=== PATIENT | female | born 1990 | race Caucasian/White ===

== ENCOUNTER 2018-03-04 16:36 | Emergency (ER) | payer BC, SELFPAY ==
[2018-03-04 16:37] VITALS: BP 146/76; PULSE 99; RESP 16; TEMP 35.8; O2SAT 97; BMI 34.0
--- NOTE | 2018-03-04 16:51 | MRI_ITS ---
STUDY: EXAMINATION - MRV BRAIN WITHOUT CONTRAST REASON FOR EXAM: Female, 28 years old. Posterior headache. . Rule out dural venous thrombosis. TECHNIQUE: 3D upyh-di-sgikof (TOF) imaging was performed in a evelyn MRI scanner. COMPARISON: None. FINDINGS: Irregularity and extrinsic defects are noted within the superior sagittal sinus which probably represent arachnoid granulations rather than thrombus. Normal flow within the superficial cortical veins. Normal flow within the paired internal cerebral veins, vein of Frankie and straight sinus. Normal flow within the bilateral transverse and sigmoid sinuses. Normal flow within the bilateral jugular bulbs. MRI/MRV Head Without Contrast IMPRESSION: No dural venous thrombosis Electronically Signed: Alex Munoz MD at 18:52 EDT , Service support ,
--- NOTE | 2018-03-04 16:51 | MRI_ITS ---
STUDY: MRI BRAIN WITHOUT CONTRAST REASON FOR EXAM: Female, 28 years old. Headache and TECHNIQUE: Standardized multiplanar fat and water weighted pulse sequences were obtained. COMPARISON: None. FINDINGS: Normal size of the ventricles and extra-axial spaces for the patient's age. Normal white matter tracts of the supratentorial brain. There is no evidence for recent intracranial ischemia or other cause of cytotoxic edema on diffusion weighted imaging (DWI). Normal bilateral basal ganglia. Normal thalami. There is no extra-axial fluid accumulation. Normal flow voids within the major intracranial circulation suggesting patency by spin echo criteria. Normal sella turcica, pituitary gland, infundibular stalk, optic chiasm and hypothalamus. Normal tectal plate and pineal gland. Normal midbrain, mike and medulla. Normal cerebellum. Normal basal cisterns. Normal bilateral temporal bones. Normal bilateral internal auditory canals. No demonstrated orbital abnormality, within the constraints of a routine brain study. Normal visualized paranasal sinuses. Normal calvarium and skull base. Normal visualized soft tissue structures. Normal visualized upper cervical spine. MRI/Brain without Contrast IMPRESSION: Normal unenhanced MRI of the brain. Electronically Signed: Alex Munoz MD at 19:05 EDT , Service support ,
--- NOTE | 2018-03-04 16:56 | ED.VISSUMM ---
- ER Visit Summary Date of Service: 03/04/18 Chief Complaint: Posterior headache History of Present Illness: The patient is a 28 F no significant past medical history. Currently is about 5 weeks . Only prior surgery was a . Patient states for 2 weeks she has had a posterior headache that is constant and throbbing. States she has never had a headache like this before. Typically does not get headaches. Gradual in onset. Worse supine. Worse if she looks up at the ceiling. No photophobia. No fever. No neck pain. No sinus congestion. No trauma. On no blood thinners. No family history of hypercoagulable problems or brain aneurysms. Patient denies any neurological symptoms. Nothing particularly relieves the headache other than Tylenol but then quickly returns within an hour. With her last she did not have any issues with headaches. She is Ab0. Physical Examination: Well-appearing young female. Vital signs are stable. Afebrile. H EENT exam unremarkable. Pupils are round reactive light. No sinus tenderness. No nasal drainage. Posterior pharynx normal. TMs normal. No signs of trauma to her face or scalp nontender. Neck nontender no lymphadenopathy. No meningismus. Able to easily touch her chin to chest. Lungs clear to auscultation bilaterally. Heart regular rhythm no murmur. Abdomen soft. Nontender normal bowel sounds no peritoneal signs. Moving all 4 extremities. Neurovascularly intact. Neurologically she is awake and alert. No focal motor or sensory deficits. 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 Bilateral dorsi and plantar flexion 5 out of 5. Fingertip to nose heel to pérez within normal limits. She ambulates without any difficulty. Negative Romberg. NIH score is 0. Test Results: MRI of the brain and MRV as read by the radiologist show a normal plain MRI. The MRV shows arachnoid granulations but normal flow. No dural venous thrombosis per the radiologist. I did review the film. CBC unremarkable white count of 9. Hemoglobin 14. Electrolytes unremarkable normal gap and creatinine. Emergency Department Course and Treatment: Repeat exam patient is doing well at 1921. She will be discharged home. Given that she is she will be instructed use Tylenol for pain. Treatment Plan: Follow-up with her SCAFFOLD WORKER. Disposition: Discharge Impression: Acute posterior headache First trimester This note was generated with [employer] software. It may contain incorrect words, spelling, and punctuation that were not noted in review of the chart prior to signing ED Disposition - Plan for ED Patient: Chief Complaint: Headache Referrals: Bina Mir MD [Primary Care Provider] -
--- NOTE | 2018-03-04 16:59 | ED.DCSUM_ITS ---
- ER Visit Summary Date of Service: 03/04/18 Chief Complaint: Posterior headache History of Present Illness: The patient is a 28 F no significant past medical history. Currently is about 5 weeks . Only prior surgery was a C- section. Patient states for 2 weeks she has had a posterior headache that is constant and throbbing. States she has never had a headache like this before. Typically does not get headaches. Gradual in onset. Worse supine. Worse if she looks up at the ceiling. No photophobia. No fever. No neck pain. No sinus congestion. No trauma. On no blood thinners. No family history of hypercoagulable problems or brain aneurysms. Patient denies any neurological symptoms. Nothing particularly relieves the headache other than Tylenol but then quickly returns within an hour. With her last she did not have any issues with headaches. She is Ab0. Physical Examination: Well-appearing young female. Vital signs are stable. Afebrile. H EENT exam unremarkable. Pupils are round reactive light. No sinus tenderness. No nasal drainage. Posterior pharynx normal. TMs normal. No signs of trauma to her face or scalp nontender. Neck nontender no lymphadenopathy. No meningismus. Able to easily touch her chin to chest. Lungs clear to auscultation bilaterally. Heart regular rhythm no murmur. Abdomen soft. Nontender normal bowel sounds no peritoneal signs. Moving all 4 extremities. Neurovascularly intact. Neurologically she is awake and alert. No focal motor or sensory deficits. Bilateral 5 out of 5 display manager strength. Bilateral dorsi and plantar flexion 5 out of 5. Fingertip to nose heel to pérez within normal limits. She ambulates without any difficulty. Negative Romberg. NIH score is 0. Test Results: MRI of the brain and MRV as read by the radiologist show a normal plain MRI. The MRV shows arachnoid granulations but normal flow. No dural venous thrombosis per the radiologist. I did review the film. CBC unremarkable white count of 9. Hemoglobin 14. Electrolytes unremarkable normal gap and creatinine. Emergency Department Course and Treatment: Repeat exam patient is doing well at 1921. She will be discharged home. Given that she is she will be instructed use Tylenol for pain. Treatment Plan: Follow-up with her EARLY BREASTFEEDING CARE SPECIALIST. Disposition: Discharge Impression: Acute posterior headache First trimester This note was generated with Tastemaker[employer]ation software. It may contain incorrect words, spelling, and punctuation that were not noted in review of the chart prior to signing ED Disposition - Plan for ED Patient: Chief Complaint: Headache Referrals: Bina Mir MD [Primary Care Provider] -
[2018-03-04 17:15] LABS: Absolute Lymphocyte Count 2.17 X10^3/ul (0.83-4.51); Basophil# 0.02 X10^3/uL; Basophil% 0.2 % (0-1); Eosinophil# 0.11 X10^3/uL; Eosinophils% 1.1 % (0-5); Hematocrit 41.8 % (37-47); Hemoglobin 14.2 g/dl (12.0-15.0); Lymphocyte # 2.17 X10^3/ul (4.0); Mean Corpuscular Hgb 30.7 pg (27.0-32.0); Mean Corpuscular Volume 90.5 fL (81-99); Mean Platelet Vol. 8.5 fl (6.2-12.0); Monocyte# 0.57 X10^3/uL; Monocyte% 5.8 % (0-10); Neutrophil % 70.8 % (47-70); Platelet Count 365 K/mm3 (150-450); RBC Distribution Width CV 13.3 % (11.6-14.6); RBC Distribution Width SD 43.3 fl (35.1-43.9); Red Blood Count 4.62 M/mm3 (4.2-5.4); White Blood Count 9.9 K/mm3 (4.4-11.0)
[2018-03-04 17:28] LABS: POSITIVE COUNT NO; POSITIVE DIFFERENTIAL NO; POSITIVE MORPHOLOGY NO
[2018-03-04 17:39] LABS: Anion Gap 7 (5-15); BUN 11 mg/dL (7-18); BUN/Creat Ratio 13.5 RATIO (10-20); Chloride 104 mmol/L (98-107); Creatinine, Serum 0.81 mg/dL (0.55-1.02); EST Glomerular Filtration Rate 90 mL/min (>60); Est Glom Filt Rate - Afr Amer 108 mL/min (>60); Estimated Creatinine Clearance 78.72 ml/min; Glucose 91 mg/dL (74-106); Potassium 3.8 mmol/L (3.5-5.1); Sodium Level 137 mmol/L (136-145)
[2018-03-04 18:56] VITALS: PULSE 78; RESP 16; O2SAT 98
--- NOTE | 2018-03-04 19:24 | DCINST.ED_ITS ---
ED Disposition - Plan for ED Patient: Disposition: Home or Assisted Living Chief Complaint: Headache Instructions: ED Cephalgia Unspecified Referrals: Bina Mir MD [Primary Care Provider] - As Needed Radhika Couch MD [STAFF PHYSICIAN] - As Needed Additional Instructions: Your MRI was unremarkable. Tylenol for pain. Follow-up with your FOREIGN COLLECTION CLERK and/or your primary care physician as needed.
[2018-03-04 19:25] VITALS: BP 136/84; PULSE 89; RESP 16; O2SAT 100
== END 2018-03-04 19:32 | disposition home or self-care (01) ==
PROVIDERS: Emergency Provider Emergency Medicine; Family Provider Family Medicine; PCP Family Medicine
DX: O26.891 Other specified pregnancy related conditions, first trimester (principal); R51 Headache; Z3A.01 Less than 8 weeks gestation of pregnancy
CPT/HCPCS: 70544; 70551; 80048; 85025; 99283; A4216

== ENCOUNTER 2018-03-09 13:21 | Inpatient (IN) | payer BC, SELFPAY ==
[2018-03-09 13:22] VITALS: BP 150/91; PULSE 89; RESP 14; TEMP 36.2; O2SAT 99; BMI 34.9
--- NOTE | 2018-03-09 13:37 | CT_ITS ---
STUDY: CT SOFT TISSUE NECK WITH CONTRAST REASON FOR EXAM: Female, 28 years old. Ventricle edema. Broke up. Left facial swelling.? Abscess. RADIATION DOSAGE (If Supplied By Facility): CTDIvol = ( 23.24 ) mGy, DLP = ( 661.63 ) mGycm TECHNIQUE: The patient was scanned in a multi-detector CT scanner. High resolution transaxial imaging was performed following intravenous administration of 75 ml of Isovue 300 contrast material. Sagittal and coronal images were reconstructed. Individualized dose optimization techniques were used for this CT. COMPARISON: None. FINDINGS: Left perimandibular swelling of the soft tissues but no abscess or phlegmon. The left medial pterygoid muscle and the left masseter muscle are slightly enlarged when compared to the right. The remaining pipeliner spaces are normal. Normal bilateral parotid glands. Normal bilateral parapharyngeal spaces. Normal bilateral carotid spaces. Normal bilateral sublingual and submandibular glands and spaces. Normal visualized nasopharynx. Normal retropharyngeal space. Normal perivertebral space. Normal visualized bilateral faucial tonsils. The visualized tongue, tongue base and oropharynx are normal. Enhancing cervical lymph nodes in the left suprahyoid neck are benign reactive nodes. Nonenhancing lymph nodes in the right suprahyoid neck are also benign reactive lymph nodes. There is no demonstrated solid or cystic mass lesion. There is no abnormal contrast enhancement. Normal epiglottis, bilateral vallecula and hypopharynx. The pre-epiglottic and paraglottic adipose spaces are normal. Normal visualized bilateral piriform sinuses, aryepiglottic folds, vocal cords, and arytenoid-cricoid articulations. Normal subglottic trachea. Normal bilateral lobes of the thyroid gland. Normal visualized pulmonary apices. Normal visualized paranasal sinuses. Normal visualized cervical spine. CT/Soft Tissue Neck WITH Contrast IMPRESSION: 1. Mild cellulitis of the left perimandibular space with mild enlargement of the left masseter muscle and the left medial pterygoid muscle. No CT evidence of abscess or phlegmon. 2. Enhancing benign reactive lymph nodes in the left suprahyoid neck. Electronically Signed: Baron Metzger MD at 15:28 EDT , Service support ,
--- NOTE | 2018-03-09 13:44 | ED.VISSUMM ---
- ER Visit Summary Date of Service: 03/09/18 Chief Complaint: Dental pain History of Present Illness: The patient is a 28 F who is 5 weeks was started on antibiotics 2 days ago by her dentist for a left lower dental infection. She is complaining of more pain especially underneath her chin. She has difficulty opening her mouth fully. No fever or chills no shortness of breath. She is no sore throat. Physical Examination: She appears in some distress Moist mucous membranes, she has left-sided facial swelling, she has quite a bit of swelling in the submental region. This bilaterally and there is no specific tenderness over the submandibular gland, it is diffuse. No C-spine tenderness supple neck. Regular rate and rhythm without any obvious murmurs Clear lungs bilaterally speaking in full sentences without any obvious respiratory distress Abdomen soft and nontender no guarding or rebound Moves all extremities without any difficulty or pain. Skin does not show any obvious rashes or lesions, no trauma. Alert oriented ?3 with no gross focal deficit Emergency Department Course and Treatment: Patient has an unremarkable laboratory workup, she does have cellulitis in the submental space, there is no obvious blood weeks angina currently, however this may be early therefore I will admit for further workup and IV antibiotic administration. I discussed with Dr. Hassan who will consult as needed. Disposition: Admit in stable condition Impression: Facial cellulitis This note was generated with [employer] dictation software. It may contain incorrect words, spelling, and punctuation that were not noted in review of the chart prior to signing ED Disposition - Plan for ED Patient: Chief Complaint: Dental Referrals: Bina Mir MD [Primary Care Provider] -
[2018-03-09] MEDS: Morphine 4 MG/ML Syringe IV (13:46)
[2018-03-09] MEDS: Ondansetron 4 MG/2 ML Vial IV (13:46)
[2018-03-09 13:53] LABS: Absolute Lymphocyte Count 1.64 X10^3/ul (0.83-4.51); Absolute Neutrophil Count 8.1 X10^3/uL (2.0-7.7); Basophil# 0.01 X10^3/uL; Basophil% 0.1 % (0-1); Eosinophil# 0.04 X10^3/uL; Eosinophils% 0.4 % (0-5); Hematocrit 38.7 % (37-47); Hemoglobin 12.8 g/dl (12.0-15.0); Lymphocyte # 1.64 X10^3/ul (4.0); Lymphocyte % 15.3 % (19-41); Mean Corp Hgb Conc 33.1 g/gl (32-36); Mean Corpuscular Hgb 29.9 pg (27.0-32.0); Mean Corpuscular Volume 90.4 fL (81-99); Mean Platelet Vol. 8.5 fl (6.2-12.0); Monocyte% 8.4 % (0-10); Neutrophil % 75.7 % (47-70); Platelet Count 306 K/mm3 (150-450); RBC Distribution Width CV 13.2 % (11.6-14.6); RBC Distribution Width SD 43.2 fl (35.1-43.9); Red Blood Count 4.28 M/mm3 (4.2-5.4); White Blood Count 10.7 K/mm3 (4.4-11.0)
[2018-03-09 13:55] LABS: POSITIVE COUNT NO; POSITIVE DIFFERENTIAL NO; POSITIVE MORPHOLOGY NO
[2018-03-09 14:06] LABS: Anion Gap 7 (5-15); BUN 8 mg/dL (7-18); BUN/Creat Ratio 13.6 RATIO (10-20); Calcium,Total 8.5 mg/dL (8.5-10.1); Chloride 103 mmol/L (98-107); Creatinine, Serum 0.59 mg/dL (0.55-1.02); EST Glomerular Filtration Rate 130 mL/min (>60); Est Glom Filt Rate - Afr Amer 158 mL/min (>60); Estimated Creatinine Clearance 108.08 ml/min; Glucose 87 mg/dL (74-106); Potassium 3.7 mmol/L (3.5-5.1); Sodium Level 135 mmol/L (136-145)
[2018-03-09] MEDS: HYDROmorphone 1 MG/ML Syringe IV ×3 (15:22→21:44)
[2018-03-09 15:26] VITALS: BP 134/86; PULSE 88; RESP 16; O2SAT 95
--- NOTE | 2018-03-09 16:15 | PCM.HP.STD ---
<Rae Torres - Last Filed: 03/09/18 16:44> Problem List (1) Facial cellulitis Status: Acute (2) Status: Chronic History of Present Illness Date of Admission: 03/09/18 Chief Complaint: Left facial pain, tooth pain. The patient is a 28 year old F who presents to the emergency room due to left facial pain/tooth pain. Patient states pain began last Saturday. She saw her dentist on Saturday who identified an infected tooth and sent her home on amoxicillin with further follow-up in a few weeks for further intervention regarding the tooth. Patient states her pain worsened since that time. She states she has been taking her prescribed antibiotic. Complains of pain 02/19. Complains of increased left facial swelling and redness. Complains of nausea. Denies fever, chills. Denies difficulty swallowing although she states she has had poor oral intake due to mouth pain. Patient denies any drainage or foul taste in mouth. She reports she is currently 5 weeks . Denies other past medical history. Past Medical History Past Medical History (Chronic Problems): Chronic Problems (Chronic) Allergies No Known Allergies Allergy (Verified 03/09/18 13:22) Home Medications: Ambulatory Orders Medication Instructions Recorded Vits [Prenatabs FA] 1 tablet PO DAILY 04/10/16 Amoxicillin [Amoxil] 500 mg PO TID 03/09/18 Surgical History: - - section x1 Psychiatric History: No pertinent psych hx RADIATOR MECHANIC History: No pertinent RADIATOR MECHANIC history Lives: Spouse/ Significant Other Smoking Status: Former smoker Tobacco Use: Non-smoker Alcohol: None Drugs: None - *Family History Maternal History Items: Diabetes Paternal History Items: Hypertension Review of Systems Constitutional: Denies: Chills, Fever, Weight Change HEENT: Reports: - - Tooth pain. Denies: Difficulty Swallowing, Head Aches, Sinus Congestion, Sinus Drainage Cardiovascular: Reports: Edema - Left face. Denies: Chest Pain, Palpitations Respiratory: Denies: Cough, Shortness of breath at rest, Sputum production Gastrointestinal: Denies: Abdominal Pain, Nausea, Vomiting Genitourinary: Denies: Dysuria Musculoskeletal: Denies: Joint Pain, Joint Tenderness Skin: Denies: Rash, Wounds Neurological: Denies: Numbness, Tingling, Focal weakness Psychiatric: Denies: Anxiety, Depression, Homicidal Ideations, Suicidal Ideations Hematologic/ Lymphatic: Denies: Easy Bruising, Easy Bleeding VTE Information - Inpt Only VTE Present on Admission: No VTE Mechan Device Prophylaxis: None VTE Pharm Prophylaxis ordered?: No Reason prophylaxis not ordered:: Medical Contraindication, Treatment Not Indicated Patient Problems: Active and Suspected Problems Facial cellulitis (Acute) - Physical Exam General: Alert, Oriented x3, Cooperative, - - Appears uncomfortable HEENT: Atraumatic, PERRLA, EOMI, Normocephalic Oral: - - Patent airway, difficulty assessing area of infection due to significant pain. No abscess or drainage visualized. Generalized erythema left face/jaw. Neck: Supple, No JVD, Trachea Midline, - - Left-sided jawline redness and edema. Cardiovascular: Regular rate, Regular Rhythm, Normal S1, Normal S2, No murmurs Abdomen: Bowel Sounds Present, Soft, Non Tender, Non-Distended, Obese Extremities: No clubbing, No cyanosis, No edema, Capillary Refill Less than 3 Seconds Skin: No rashes, No breakdown, - - Left facial erythema. Musculoskeletal: No Tenderness to Palpation of Joints or Extremities Neurological: Cranial nerves II-XII grossly intact, Neuro grossly intact Psych/Mental Status: Normal Affect, Appropriate Vital Signs Temp Pulse Resp BP Pulse Ox 97.2 F L 88 16 134/86 H 95 03/09/18 13:22 03/09/18 15:26 03/09/18 15:26 03/09/18 15:26 03/09/18 15:26 Oxygen Delivery Method Room Air Weight: 185 lb Body Mass Index (BMI) 34.9 Laboratory Tests Past 24 Hrs 03/09/18 03/09/18 13:45 13:45 WBC 10.7 RBC 4.28 Hgb 12.8 Hct 38.7 MCV 90.4 MCH 29.9 MCHC 33.1 RDW 13.2 RDW Differential 43.2 Plt Count 306 MPV 8.5 Immature Gran % (Auto) 0.100 Neut % (Auto) 75.7 H Lymph % (Auto) 15.3 L Ritchie % (Auto) 8.4 Eos % (Auto) 0.4 Baso % (Auto) 0.1 Absolute Neuts (auto) 8.1 H Absolute Lymphs (auto) 1.64 Total Counted Not Reportable Sodium 135 L Potassium 3.7 Chloride 103 Carbon Dioxide 25.0 Anion Gap 7 BUN 8 Creatinine 0.59 Estim Creat Clear Calc 108.08 Est GFR (MDRD) Af Amer 158 Est GFR (MDRD) Non-Af 130 BUN/Creatinine Ratio 13.6 Glucose 87 Calcium 8.5 Assessment/Plan All Active Problems Facial cellulitis (Acute) 1. Radha-facial cellulitis, secondary to dental infection, failed outpatient treatment with amoxicillin-airway patent. Patient denies difficulty swallowing. IV fluids given poor oral intake due to significant oral pain. Continue IV clindamycin 600mg Q8H. IV Dilaudid and tylenol as needed for pain. Zofran as needed for nausea. Dr. Hassan, oral surgery consulted from ER. CT of neck on admission showed mild cellulitis of the left perimandibular space with mild enlargement of the left masseteric muscle and left medial pterygoid muscle. No evidence of abscess. 2. , first trimester-patient reports she is 5 weeks . Continue vitamin. DVT prophylaxis-not indicated low risk, early ambulation This patient was seen by JACKIE JoseC under the supervision of Dr. Man. <Jeniffer Man - Last Filed: 03/09/18 18:44> History of Present Illness The patient is a 28 year old F [] Past Medical History Allergies No Known Allergies Allergy (Verified 03/09/18 13:22) - Physical Exam Vital Signs Temp Pulse Resp BP Pulse Ox 97.2 F L 88 16 134/86 H 95 03/09/18 13:22 03/09/18 15:26 03/09/18 15:26 03/09/18 15:26 03/09/18 15:26 Oxygen Delivery Method Room Air Weight: 185 lb Body Mass Index (BMI) 34.9 Laboratory Tests Past 24 Hrs 03/09/18 03/09/18 13:45 13:45 WBC 10.7 RBC 4.28 Hgb 12.8 Hct 38.7 MCV 90.4 MCH 29.9 MCHC 33.1 RDW 13.2 RDW Differential 43.2 Plt Count 306 MPV 8.5 Immature Gran % (Auto) 0.100 Neut % (Auto) 75.7 H Lymph % (Auto) 15.3 L Ritchie % (Auto) 8.4 Eos % (Auto) 0.4 Baso % (Auto) 0.1 Absolute Neuts (auto) 8.1 H Absolute Lymphs (auto) 1.64 Total Counted Not Reportable Sodium 135 L Potassium 3.7 Chloride 103 Carbon Dioxide 25.0 Anion Gap 7 BUN 8 Creatinine 0.59 Estim Creat Clear Calc 108.08 Est GFR (MDRD) Af Amer 158 Est GFR (MDRD) Non-Af 130 BUN/Creatinine Ratio 13.6 Glucose 87 Calcium 8.5 Assessment/Plan Patient seen by Rae Melton under my supervision. Patient is a 28-year-old female with no significant past medical history and was 5 weeks . She was admitted through the ED with a complaint of left neck and facial pain which is been going on for about 5 days. She also tooth pain in the left jaw and saw her dentist on Saturday and was started on amoxicillin. Pain however subsequently worsened with associated left jaw swelling. She has had increased redness in the area but denied any fever or chills and difficulty swallowing. Labs in the ED only significant for sodium of 135 and per vital signs she was afebrile. She has been admitted to be managed for left facial cellulitis. o/e: Vital Signs Height 5 ft 1 in Weight: 185 lb Weight in Pounds 185.0 lbs Pulse Ox 95 Temperature 97.2 F Pulse Rate 88 Respiratory Rate 16 Blood Pressure 134/86 General: Alert, Oriented x3, Cooperative, - - Appears uncomfortable HEENT: Atraumatic, PERRLA, EOMI, Normocephalic; erythema, swelling and tenderness of left jaw and left submandibular area. Oral: - - Patent airway, patient has difficulty opening her mouth Neck: Supple, No JVD, Trachea Midline, Cardiovascular: Regular rate, Regular Rhythm, Normal S1, Normal S2, No murmurs Abdomen: Bowel Sounds Present, Soft, Non Tender, Non-Distended, Obese Extremities: No clubbing, No cyanosis, No edema, Capillary Refill Less than 3 Seconds Skin: No rashes, No breakdown Musculoskeletal: No Tenderness to Palpation of Joints or Extremities Neurological: Cranial nerves II-XII grossly intact, Neuro grossly intact Psych/Mental Status: Normal Affect, Appropriate Plan is to admit and manage for cellulitis of the left submandibular and left jaw areas. Soft tissue CT showed left perimandibular swelling of the soft tissues but no abscess or phlegmon with left medial pterygoid muscle and left masseter muscle slightly enlarged when compared to the right and Enhancing reactive benign lymph nodes in the left suprahyoid neck. She was started on IV clindamycin in the ED. Will continue. Hydrated with IV fluids. IV morphine as needed for pain. Agree with rest of Rae Torres GENERAL DENTIST/OWNER C's note. Rest of management and plan as per Rae Melton's note Code Visit OBSV E&M: 07888 Initial observation care L2
[2018-03-09 17:17] VITALS: BMI 35.2; BMI 35.3
[2018-03-09 17:20] VITALS: BP 137/90; PULSE 82; RESP 16; TEMP 37.3; O2SAT 100
[2018-03-09] MEDS: 0.9% Normal Saline 1,000 ML 100 ML IV (17:44)
[2018-03-09 21:30] VITALS: BP 134/84; PULSE 90; RESP 18; TEMP 37.8; O2SAT 98
[2018-03-09] MEDS: 0.9% NaCl Peripheral Flush Adult/Peds IV (21:47)
[2018-03-09] MEDS: Acetaminophen 325 MG Tablet 650 MG PO (21:53)
[2018-03-09 23:00] VITALS: TEMP 37.1
[2018-03-10] VITALS (8 sets, daily range): BP systolic 110–128; BP diastolic 66–83; PULSE 72–85; RESP 16–20; TEMP 36.8–37.3; O2SAT 95–100
[2018-03-10] MEDS: HYDROmorphone 1 MG/ML Syringe IV ×2 (01:46→04:55)
[2018-03-10] MEDS: 0.9% NaCl Peripheral Flush Adult/Peds IV ×2 (01:47→04:56)
[2018-03-10] MEDS: Acetaminophen 325 MG Tablet 650 MG PO (04:06)
[2018-03-10] MEDS: 0.9% Normal Saline 1,000 ML 100 ML IV ×3 (04:07→20:06)
[2018-03-10 07:12] LABS: Absolute Lymphocyte Count 1.63 X10^3/ul (0.83-4.51); Absolute Neutrophil Count 7.4 X10^3/uL (2.0-7.7); Basophil# 0.01 X10^3/uL; Basophil% 0.1 % (0-1); Eosinophil# 0.02 X10^3/uL; Eosinophils% 0.2 % (0-5); Hematocrit 34.2 % (37-47); Hemoglobin 11.2 g/dl (12.0-15.0); Lymphocyte # 1.63 X10^3/ul (4.0); Lymphocyte % 16.5 % (19-41); Mean Corp Hgb Conc 32.7 g/gl (32-36); Mean Corpuscular Hgb 29.8 pg (27.0-32.0); Mean Platelet Vol. 8.3 fl (6.2-12.0); Monocyte# 0.75 X10^3/uL; Monocyte% 7.6 % (0-10); Neutrophil # 7.44 X10^3/uL (2.7-7.7); Neutrophil % 75.5 % (47-70); Platelet Count 271 K/mm3 (150-450); RBC Distribution Width CV 13.3 % (11.6-14.6); RBC Distribution Width SD 43.7 fl (35.1-43.9); Red Blood Count 3.76 M/mm3 (4.2-5.4); White Blood Count 9.9 K/mm3 (4.4-11.0)
[2018-03-10 07:21] LABS: POSITIVE COUNT NO; POSITIVE DIFFERENTIAL NO; POSITIVE MORPHOLOGY NO
[2018-03-10 07:23] LABS: Anion Gap 7 (5-15); BUN 6 mg/dL (7-18); BUN/Creat Ratio 11.8 RATIO (10-20); Chloride 102 mmol/L (98-107); Creatinine, Serum 0.51 mg/dL (0.55-1.02); EST Glomerular Filtration Rate 154 mL/min (>60); Est Glom Filt Rate - Afr Amer 187 mL/min (>60); Estimated Creatinine Clearance 125.03 ml/min; Glucose 97 mg/dL (74-106); Potassium 3.7 mmol/L (3.5-5.1); Sodium Level 134 mmol/L (136-145)
[2018-03-10] MEDS: oxyCODONE 5 MG Tablet PO ×4 (07:43→20:11)
[2018-03-10] MEDS: Ondansetron 4 MG/2 ML Vial IV (09:15)
--- NOTE | 2018-03-10 09:30 | PCM.PN.HOSP ---
Patient Problems: Active and Suspected Problems Facial cellulitis (Acute) Subjective: Patient notes increased swelling of left side of her face. Difficulty chewing. No SOB. No trismus. Vitals/I&O's: Vital Signs Temp Pulse Resp BP Pulse Ox 36.9 C 72 20 H 128/70 H 99 03/10/18 07:54 03/10/18 07:54 03/10/18 07:54 03/10/18 07:54 03/10/18 07:54 Oxygen Delivery Method Room Air Weight: 84.69 kg Body Mass Index (BMI) 35.2 Intake and Output for Last 24 Hours 03/08/18 03/09/18 03/10/18 23:59 23:59 23:59 Intake Total 100 / 100 1314 / 1314 Balance 100 / 100 1314 / 1314 General: Alert, No apparent distress HEENT: Atraumatic, - - left mandibular area swelling w/o fluctuance. left submandibular swelling. Oral: - - unable to open mouth wide Neck: No Nodes, Thyroid Normal Size and Texture Lungs: Clear to auscultation, Normal air movement, No rhonchi, No wheeze Cardiovascular: Regular rate, Regular Rhythm, Normal S1, Normal S2, No murmurs Abdomen: Bowel Sounds Present, Soft, Non Tender, Non-Distended, No Hepato-splenomegaly Extremities: No edema, No Calf Tenderness Skin: No rashes, No breakdown Musculoskeletal: No Tenderness to Palpation of Joints or Extremities, No Muscle Wasting Psych/Mental Status: Normal Affect, Appropriate Laboratory Results 03/09/18 13:45: WBC 10.7, RBC 4.28, Hgb 12.8, Hct 38.7, MCV 90.4, MCH 29.9, MCHC 33.1, RDW 13.2, RDW Differential 43.2, Plt Count 306, MPV 8.5, Immature Gran % (Auto) 0.100, Neut % (Auto) 75.7 H, Lymph % (Auto) 15.3 L, [place] % (Auto) 8.4, Eos % (Auto) 0.4, Baso % (Auto) 0.1, Absolute Neuts (auto) 8.1 H, Absolute Lymphs (auto) 1.64, Total Counted Not Reportable 03/09/18 13:45: Sodium 135 L, Potassium 3.7, Chloride 103, Carbon Dioxide 25.0, Anion Gap 7, BUN 8, Creatinine 0.59, Estim Creat Clear Calc 108.08, Est GFR (MDRD) Af Amer 158, Est GFR (MDRD) Non-Af 130, BUN/Creatinine Ratio 13.6, Glucose 87, Calcium 8.5 03/10/18 07:00: WBC 9.9, RBC 3.76 L, Hgb 11.2 L, Hct 34.2 L, MCV 91.0, MCH 29.8, MCHC 32.7, RDW 13.3, RDW Differential 43.7, Plt Count 271, MPV 8.3, Immature Gran % (Auto) 0.100, Neut % (Auto) 75.5 H, Lymph % (Auto) 16.5 L, [place] % (Auto) 7.6, Eos % (Auto) 0.2, Baso % (Auto) 0.1, Absolute Neuts (auto) 7.4, Absolute Lymphs (auto) 1.63, Total Counted Not Reportable 03/10/18 07:00: Sodium 134 L, Potassium 3.7, Chloride 102, Carbon Dioxide 25.0, Anion Gap 7, BUN 6 L, Creatinine 0.51 L, Estim Creat Clear Calc 125.03, Est GFR (MDRD) Af Amer 187, Est GFR (MDRD) Non-Af 154, BUN/Creatinine Ratio 11.8, Glucose 97, Calcium 8.0 L Current Medications Acetaminophen (Tylenol) 650 mg PO Q6H PRN PRN PRN Reason: Mild Pain (scale 0-3)/T>100.7 Last Admin: 03/10/18 04:06 Dose: 650 mg Hydromorphone HCl (Dilaudid Inj) 1 mg IV Q3H PRN PRN PRN Reason: SEVERE PAIN (6-10/10) Last Admin: 03/10/18 04:55 Dose: 1 mg Sodium Chloride () 1,000 mls @ 100 mls/hr IV .Q10H [facility] Last Admin: 03/10/18 04:07 Dose: 100 mls/hr Clindamycin Phosphate 600 mg/ (Dextrose) 54 mls @ 100 mls/hr IV Q8 [facility] Last Admin: 03/10/18 06:27 Dose: 100 mls/hr Ondansetron HCl (Zofran) 4 mg IV Q8H PRN PRN PRN Reason: Nausea Last Admin: 03/10/18 09:15 Dose: 4 mg Oxycodone HCl (Oxyir) 5 - 10 mg PO Q4H PRN PRN PRN Reason: SEVERE PAIN (6-10/10) Last Admin: 03/10/18 07:43 Dose: 5 mg Multivit/Folic Acid/Iron (Prenatabs Fa) 1 tablet PO DAILY@1200 [facility] Sodium Chloride () 5 - 30 ml IV UD PRN PRN Reason: SALINE FLUSH Last Admin: 03/10/18 04:56 Dose: 10 ml Medical Necessity - Tobacco Use Smoking Status: Former smoker Tobacco Use: Non-smoker Assessment/Plan All Active Problems Facial cellulitis (Acute) 1. Left facial cellulitis worse today unable to visualize post pharynx, but no clinical nolan's angina DC clindamyin (was on amoxicillin for 3 days prior to admission) will change to Vancomycin and Unasyn DDS on consult. No abscess on CT 2. 1st trimester approximately 5 weeks. vitamin f/u OB as outpt reviewed risks of abx minimize narcotics increase tylenol Code Visit Inpatient E&M: 30194 Subs Hosp L2
--- NOTE | 2018-03-10 09:41 | PN_ITS ---
Patient Problems: Active and Suspected Problems Facial cellulitis (Acute) Subjective: Patient notes increased swelling of left side of her face. Difficulty chewing. No SOB. No trismus. Vitals/I&O's: Vital Signs Temp Pulse Resp BP Pulse Ox 36.9 C 72 20 H 128/70 H 99 03/10/18 07:54 03/10/18 07:54 03/10/18 07:54 03/10/18 07:54 03/10/18 07:54 Oxygen Delivery Method Room Air Weight: 84.69 kg Body Mass Index (BMI) 35.2 Intake and Output for Last 24 Hours 03/08/18 03/09/18 03/10/18 23:59 23:59 23:59 Intake Total 100 / 100 1314 / 1314 Balance 100 / 100 1314 / 1314 General: Alert, No apparent distress HEENT: Atraumatic, - - left mandibular area swelling w/o fluctuance. left submandibular swelling. Oral: - - unable to open mouth wide Neck: No Nodes, Thyroid Normal Size and Texture Lungs: Clear to auscultation, Normal air movement, No rhonchi, No wheeze Cardiovascular: Regular rate, Regular Rhythm, Normal S1, Normal S2, No murmurs Abdomen: Bowel Sounds Present, Soft, Non Tender, Non-Distended, No Hepato- splenomegaly Extremities: No edema, No Calf Tenderness Skin: No rashes, No breakdown Musculoskeletal: No Tenderness to Palpation of Joints or Extremities, No Muscle Wasting Psych/Mental Status: Normal Affect, Appropriate Laboratory Results 03/09/18 13:45: WBC 10.7, RBC 4.28, Hgb 12.8, Hct 38.7, MCV 90.4, MCH 29.9, MCHC 33.1, RDW 13.2, RDW Differential 43.2, Plt Count 306, MPV 8.5, Immature Gran % (Auto) 0.100, Neut % (Auto) 75.7 H, Lymph % (Auto) 15.3 L, [place] % (Auto) 8.4, Eos % (Auto) 0.4, Baso % (Auto) 0.1, Absolute Neuts (auto) 8.1 H, Absolute Lymphs (auto) 1.64, Total Counted Not Reportable 03/09/18 13:45: Sodium 135 L, Potassium 3.7, Chloride 103, Carbon Dioxide 25.0, Anion Gap 7, BUN 8, Creatinine 0.59, Estim Creat Clear Calc 108.08, Est GFR (MDRD) Af Amer 158, Est GFR (MDRD) Non-Af 130, BUN/Creatinine Ratio 13.6, Glucose 87, Calcium 8.5 03/10/18 07:00: WBC 9.9, RBC 3.76 L, Hgb 11.2 L, Hct 34.2 L, MCV 91.0, MCH 29.8, MCHC 32.7, RDW 13.3, RDW Differential 43.7, Plt Count 271, MPV 8.3, Immature Gran % (Auto) 0.100, Neut % (Auto) 75.5 H, Lymph % (Auto) 16.5 L, [place] % (Auto) 7.6, Eos % (Auto) 0.2, Baso % (Auto) 0.1, Absolute Neuts (auto) 7.4, Absolute Lymphs (auto) 1.63, Total Counted Not Reportable 03/10/18 07:00: Sodium 134 L, Potassium 3.7, Chloride 102, Carbon Dioxide 25.0, Anion Gap 7, BUN 6 L, Creatinine 0.51 L, Estim Creat Clear Calc 125.03, Est GFR (MDRD) Af Amer 187, Est GFR (MDRD) Non-Af 154, BUN/Creatinine Ratio 11.8, Glucose 97, Calcium 8.0 L Current Medications Acetaminophen (Tylenol) 650 mg PO Q6H PRN PRN PRN Reason: Mild Pain (scale 0-3)/T>100.7 Last Admin: 03/10/18 04:06 Dose: 650 mg Hydromorphone HCl (Dilaudid Inj) 1 mg IV Q3H PRN PRN PRN Reason: SEVERE PAIN (6-10/10) Last Admin: 03/10/18 04:55 Dose: 1 mg Sodium Chloride () 1,000 mls @ 100 mls/hr IV .Q10H [facility] Last Admin: 03/10/18 04:07 Dose: 100 mls/hr Clindamycin Phosphate 600 mg/ (Dextrose) 54 mls @ 100 mls/hr IV Q8 [facility] Last Admin: 03/10/18 06:27 Dose: 100 mls/hr Ondansetron HCl (Zofran) 4 mg IV Q8H PRN PRN PRN Reason: Nausea Last Admin: 03/10/18 09:15 Dose: 4 mg Oxycodone HCl (Oxyir) 5 - 10 mg PO Q4H PRN PRN PRN Reason: SEVERE PAIN (6-10/10) Last Admin: 03/10/18 07:43 Dose: 5 mg Multivit/Folic Acid/Iron (Prenatabs Fa) 1 tablet PO DAILY@1200 [facility] Sodium Chloride () 5 - 30 ml IV UD PRN PRN Reason: SALINE FLUSH Last Admin: 03/10/18 04:56 Dose: 10 ml Medical Necessity - Tobacco Use Smoking Status: Former smoker Tobacco Use: Non-smoker Assessment/Plan All Active Problems Facial cellulitis (Acute) 1. Left facial cellulitis * worse today * unable to visualize post pharynx, but no clinical nolan's angina * DC clindamyin (was on amoxicillin for 3 days prior to admission) * will change to Vancomycin and Unasyn * DDS on consult. * No abscess on CT 2. 1st trimester * approximately 5 weeks. * vitamin * f/u OB as outpt * reviewed risks of abx * minimize narcotics * increase tylenol Code Visit Inpatient E&M: 25704 Subs Hosp L2
--- NOTE | 2018-03-10 11:12 | PCM.RX.CS ---
Consult Pharmacy has been consulted to manage selected antiobiotic: Vancomycin Type of Consult: New start Suspected Infection: Skin/Soft tissue Prior Doses of Antibiotics Received/Current Regimen: NONE Labs: Sodium 134 mmol/L (136-145) L 03/10/18 07:00 Potassium 3.7 mmol/L (3.5-5.1) 03/10/18 07:00 Chloride 102 mmol/L (98-107) 03/10/18 07:00 Carbon Dioxide 25.0 mmol/L (21.0-32.0) 03/10/18 07:00 Anion Gap 7 (5-15) 03/10/18 07:00 BUN 6 mg/dL (7-18) L 03/10/18 07:00 Creatinine 0.51 mg/dL (0.55-1.02) L 03/10/18 07:00 Est GFR (MDRD) Af Amer 187 mL/min (>60) 03/10/18 07:00 Est GFR (MDRD) Non-Af 154 mL/min (>60) 03/10/18 07:00 BUN/Creatinine Ratio 11.8 RATIO (10-20) 03/10/18 07:00 Glucose 97 mg/dL (74-106) 03/10/18 07:00 Weight used for dosin.6 kg Estimated Creatinine Clearance: 125 Goal Trough: 15-20 mcg/mL Pharmacy Plan for Drug Dosing: PLAN/RECOMMENDATIONS 1. Vancomycin 1250mg IV x1 03/10 @1200 2. Start vancomycin 1000mg IV Q8hrs per dosing protocol. Start 03/10 @2000 3. Trough scheduled prior to 4th total dose of vancomycin on 03/11/18 @1130 4. Pharmacy Service will continue to monitor and adjust dosing as required.
[2018-03-10] MEDS: Acetaminophen 650 MG/20 ML UDC 1000 MG PO ×2 (11:46→16:09)
--- NOTE | 2018-03-10 13:32 | PCM.CONS.GEN ---
Reason for Consult Date of Consultation: 03/10/18 Reason for Consultation: Neck and Facial cellulitis History of Present Illness: The patient is a 28 year old Female who has battled a tooth ache since last week. She was placed on amoxicillin from her dentist but continued to swell. Admitted last night with continued swelling today. Vancomycin and unasyn now. 5 weeks . 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 history Lives: Spouse/ Significant Other Smoking Status: Former smoker Tobacco Use: Non-smoker Alcohol: None Drugs: None - *Family History Maternal History Items: Diabetes Paternal History Items: Hypertension Patient Problems: Active and Suspected Problems Facial cellulitis (Acute) - Physical Exam General: Alert, Oriented x3, Cooperative, Well developed HEENT: Atraumatic, PERRLA, EOMI, Normocephalic Oral: Moist Mucosa Neck: Supple, Trachea Midline Skin: No rashes Musculoskeletal: No Tenderness to Palpation of Joints or Extremities Lymphatic: No Cervical, Supraclavicular, or Inguinal Adenopathy Neurological: Cranial nerves II-XII grossly intact Vital Signs Temp Pulse Resp BP Pulse Ox 98.9 F 80 20 H 117/72 96 03/10/18 11:27 03/10/18 11:27 03/10/18 11:29 03/10/18 11:27 03/10/18 11:29 Oxygen Delivery Method Room Air Weight: 84.69 kg Body Mass Index (BMI) 35.2 Intake and Output for Last 24 Hours 03/08/18 03/09/18 03/10/18 23:59 23:59 23:59 Intake Total 100 / 100 1758 / 1758 Output Total 300 / 300 Balance 100 / 100 1458 / 1458 Laboratory Tests Past 24 Hrs 03/09/18 03/09/18 03/10/18 13:45 13:45 07:00 WBC 10.7 9.9 RBC 4.28 3.76 L Hgb 12.8 11.2 L Hct 38.7 34.2 L MCV 90.4 91.0 MCH 29.9 29.8 MCHC 33.1 32.7 RDW 13.2 13.3 RDW Differential 43.2 43.7 Plt Count 306 271 MPV 8.5 8.3 Immature Gran % (Auto) 0.100 0.100 Neut % (Auto) 75.7 H 75.5 H Lymph % (Auto) 15.3 L 16.5 L [place] % (Auto) 8.4 7.6 Eos % (Auto) 0.4 0.2 Baso % (Auto) 0.1 0.1 Absolute Neuts (auto) 8.1 H 7.4 Absolute Lymphs (auto) 1.64 1.63 Total Counted Not Reportable Not Reportable Sodium 135 L Potassium 3.7 Chloride 103 Carbon Dioxide 25.0 Anion Gap 7 BUN 8 Creatinine 0.59 Estim Creat Clear Calc 108.08 Est GFR (MDRD) Af Amer 158 Est GFR (MDRD) Non-Af 130 BUN/Creatinine Ratio 13.6 Glucose 87 Calcium 8.5 03/10/18 07:00 WBC RBC Hgb Hct MCV MCH MCHC RDW RDW Differential Plt Count MPV Immature Gran % (Auto) Neut % (Auto) Lymph % (Auto) [place] % (Auto) Eos % (Auto) Baso % (Auto) Absolute Neuts (auto) Absolute Lymphs (auto) Total Counted Sodium 134 L Potassium 3.7 Chloride 102 Carbon Dioxide 25.0 Anion Gap 7 BUN 6 L Creatinine 0.51 L Estim Creat Clear Calc 125.03 Est GFR (MDRD) Af Amer 187 Est GFR (MDRD) Non-Af 154 BUN/Creatinine Ratio 11.8 Glucose 97 Calcium 8.0 L Assessment/Plan All Active Problems Facial cellulitis (Acute) Since she is and no acute airway as of now I would continue present management and get a new CBC in am. She is tolerating oral secretions well and can protrude her tongue, therefore not acutely worried about airway embarassment at this time although that is a potential concern. Would not put ice on the area and would use heat instead.
[2018-03-10] MEDS: Vancomycin IV 1,000 MG/200 ML BAG 200 MG IV (20:04)
[2018-03-11] MEDS: oxyCODONE 5 MG Tablet PO ×5 (00:12→20:04)
[2018-03-11] MEDS: Acetaminophen 650 MG/20 ML UDC PO ×3 (01:51→18:04)
[2018-03-11 02:00] VITALS: BP 123/72; PULSE 89; RESP 16; TEMP 37.8; O2SAT 96
[2018-03-11] MEDS: Vancomycin IV 1,000 MG/200 ML BAG 200 MG IV ×2 (04:12→12:13)
[2018-03-11 06:23] LABS: Absolute Lymphocyte Count 1.42 X10^3/ul (0.83-4.51); Absolute Neutrophil Count 6.4 X10^3/uL (2.0-7.7); Basophil# 0.01 X10^3/uL; Basophil% 0.1 % (0-1); Eosinophil# 0.08 X10^3/uL; Eosinophils% 0.9 % (0-5); Hematocrit 33.7 % (37-47); Hemoglobin 11.3 g/dl (12.0-15.0); Lymphocyte # 1.42 X10^3/ul (4.0); Lymphocyte % 16.4 % (19-41); Mean Corp Hgb Conc 33.5 g/gl (32-36); Mean Corpuscular Hgb 30.3 pg (27.0-32.0); Mean Corpuscular Volume 90.3 fL (81-99); Mean Platelet Vol. 8.5 fl (6.2-12.0); Monocyte# 0.76 X10^3/uL; Monocyte% 8.8 % (0-10); Neutrophil # 6.39 X10^3/uL (2.7-7.7); Neutrophil % 73.7 % (47-70); Platelet Count 318 K/mm3 (150-450); RBC Distribution Width CV 12.9 % (11.6-14.6); RBC Distribution Width SD 41.9 fl (35.1-43.9); Red Blood Count 3.73 M/mm3 (4.2-5.4); White Blood Count 8.7 K/mm3 (4.4-11.0)
[2018-03-11 06:25] LABS: POSITIVE COUNT NO; POSITIVE DIFFERENTIAL NO; POSITIVE MORPHOLOGY NO
[2018-03-11 06:41] LABS: Anion Gap 9 (5-15); BUN 3 mg/dL (7-18); BUN/Creat Ratio 5.9 RATIO (10-20); Calcium,Total 8.2 mg/dL (8.5-10.1); Chloride 103 mmol/L (98-107); Creatinine, Serum 0.51 mg/dL (0.55-1.02); EST Glomerular Filtration Rate 155 mL/min (>60); Est Glom Filt Rate - Afr Amer 188 mL/min (>60); Estimated Creatinine Clearance 125.03 ml/min; Glucose 91 mg/dL (74-106); Potassium 3.5 mmol/L (3.5-5.1); Sodium Level 138 mmol/L (136-145)
[2018-03-11] MEDS: 0.9% Normal Saline 1,000 ML 100 ML IV (07:28)
[2018-03-11 07:29] VITALS: BP 115/62; PULSE 85; RESP 18; TEMP 37.2; O2SAT 95
--- NOTE | 2018-03-11 09:24 | NURSING ---
attempted to give pt pain meds- pt refused oxyir at this time.
--- NOTE | 2018-03-11 10:08 | PCM.PN.HOSP ---
Patient Problems: Active and Suspected Problems Facial cellulitis (Acute) Subjective: Still with significant facial swelling--but not worse. No shortness of breath. No trismus. Vitals/I&O's: Vital Signs Temp Pulse Resp BP Pulse Ox 37.2 C 85 18 115/62 95 03/11/18 07:29 03/11/18 07:29 03/11/18 07:29 03/11/18 07:29 03/11/18 07:29 Oxygen Delivery Method Room Air Weight: 84.69 kg Body Mass Index (BMI) 35.2 Intake and Output for Last 24 Hours 03/09/18 03/10/18 03/11/18 23:59 23:59 23:59 Intake Total 100 / 100 227 / 2275 4623 / 4623 Output Total 300 / 300 Balance 100 / 100 1975 4623 / 4623 General: Alert, No apparent distress HEENT: - - left facial swelling. TTP over parotid and submandibular region. Oral: - - unable to open mouth wide. MMM. tounge midline. Neck: No Nodes, Thyroid Normal Size and Texture Lungs: Clear to auscultation, Normal air movement, No rhonchi, No wheeze Cardiovascular: Regular rate, Regular Rhythm, Normal S1, Normal S2, No murmurs Abdomen: Bowel Sounds Present, Soft, Non Tender, Non-Distended, No Hepato-splenomegaly Extremities: No edema, No Calf Tenderness Skin: No rashes, No breakdown Musculoskeletal: No Tenderness to Palpation of Joints or Extremities, No Muscle Wasting Psych/Mental Status: Normal Affect, Appropriate Laboratory Results 03/11/18 06:00: WBC 8.7, RBC 3.73 L, Hgb 11.3 L, Hct 33.7 L, MCV 90.3, MCH 30.3, MCHC 33.5, RDW 12.9, RDW Differential 41.9, Plt Count 318, MPV 8.5, Immature Gran % (Auto) 0.100, Neut % (Auto) 73.7 H, Lymph % (Auto) 16.4 L, [place] % (Auto) 8.8, Eos % (Auto) 0.9, Baso % (Auto) 0.1, Absolute Neuts (auto) 6.4, Absolute Lymphs (auto) 1.42, Total Counted Not Reportable 03/11/18 06:00: Sodium 138, Potassium 3.5, Chloride 103, Carbon Dioxide 26.0, Anion Gap 9, BUN 3 L, Creatinine 0.51 L, Estim Creat Clear Calc 125.03, Est GFR (MDRD) Af Amer 188, Est GFR (MDRD) Non-Af 155, BUN/Creatinine Ratio 5.9 L, Glucose 91, Calcium 8.2 L Current Medications Acetaminophen (Tylenol Liquid) 650 mg PO Q6H PRN PRN Reason: pain Sodium Chloride () 1,000 mls @ 100 mls/hr IV .Q10H [facility] Last Admin: 03/11/18 07:28 Dose: 100 mls/hr Ampicillin Sodium/Sulbactam (Sodium 3 gm/ Sodium Chloride) 112 mls @ 150 mls/hr IV Q6 [facility] Last Admin: 03/11/18 06:05 Dose: 150 mls/hr Vancomycin IV Pharmacy to Dose (1 ea/ Sodium Chloride) 500 mls @ 250 mls/hr IV PRN PRN; Protocol PRN Reason: Rx to Dose Vancomycin HCl (Vancomycin) 1,000 mg in 200 mls @ 200 mls/hr IV Q8H [facility] Last Admin: 03/11/18 04:12 Dose: 200 mls/hr Ibuprofen (Motrin Liquid) 600 mg PO Q6H PRN PRN PRN Reason: MILD PAIN (1-3/10) Ondansetron HCl (Zofran) 4 mg IV Q8H PRN PRN PRN Reason: Nausea Last Admin: 03/10/18 09:15 Dose: 4 mg Oxycodone HCl (Oxyir) 5 - 10 mg PO Q4H PRN PRN PRN Reason: SEVERE PAIN (6-10/10) Last Admin: 03/11/18 09:48 Dose: 10 mg Multivit/Folic Acid/Iron (Prenatabs Fa) 1 tablet PO DAILY@1200 [facility] Last Admin: 03/10/18 11:08 Dose: Not Given Sodium Chloride () 5 - 30 ml IV UD PRN PRN Reason: SALINE FLUSH Last Admin: 03/10/18 04:56 Dose: 10 ml Medical Necessity - Tobacco Use Smoking Status: Former smoker Tobacco Use: Non-smoker Assessment/Plan All Active Problems Facial cellulitis (Acute) 1. Left facial cellulitis stable today unable to visualize post pharynx, but no clinical nolan's angina DC clindamyin (was on amoxicillin for 3 days prior to admission) continue Vancomycin and Unasyn DDS seen and no need for intervention at this time. No abscess on CT, however, if no improvement, then would repeat CT to see if development of abscess or even parotitis. 2. 1st trimester approximately 5 weeks. vitamin f/u OB as outpt reviewed risks of abx minimize narcotics increase tylenol Code Visit Inpatient E&M: 31358 Subs Hosp L2
--- NOTE | 2018-03-11 10:12 | PN_ITS ---
Patient Problems: Active and Suspected Problems Facial cellulitis (Acute) Subjective: Still with significant facial swelling--but not worse. No shortness of breath. No trismus. Vitals/I&O's: Vital Signs Temp Pulse Resp BP Pulse Ox 37.2 C 85 18 115/62 95 03/11/18 07:29 03/11/18 07:29 03/11/18 07:29 03/11/18 07:29 03/11/18 07:29 Oxygen Delivery Method Room Air Weight: 84.69 kg Body Mass Index (BMI) 35.2 Intake and Output for Last 24 Hours 03/09/18 03/10/18 03/11/18 23:59 23:59 23:59 Intake Total 100 / 100 227 / 2275 4623 / 4623 Output Total 300 / 300 Balance 100 / 100 1975 4623 / 4623 General: Alert, No apparent distress HEENT: - - left facial swelling. TTP over parotid and submandibular region. Oral: - - unable to open mouth wide. MMM. tounge midline. Neck: No Nodes, Thyroid Normal Size and Texture Lungs: Clear to auscultation, Normal air movement, No rhonchi, No wheeze Cardiovascular: Regular rate, Regular Rhythm, Normal S1, Normal S2, No murmurs Abdomen: Bowel Sounds Present, Soft, Non Tender, Non-Distended, No Hepato- splenomegaly Extremities: No edema, No Calf Tenderness Skin: No rashes, No breakdown Musculoskeletal: No Tenderness to Palpation of Joints or Extremities, No Muscle Wasting Psych/Mental Status: Normal Affect, Appropriate Laboratory Results 03/11/18 06:00: WBC 8.7, RBC 3.73 L, Hgb 11.3 L, Hct 33.7 L, MCV 90.3, MCH 30.3, MCHC 33.5, RDW 12.9, RDW Differential 41.9, Plt Count 318, MPV 8.5, Immature Gran % (Auto) 0.100, Neut % (Auto) 73.7 H, Lymph % (Auto) 16.4 L, [place] % (Auto) 8.8, Eos % (Auto) 0.9, Baso % (Auto) 0.1, Absolute Neuts (auto) 6.4, Absolute Lymphs (auto) 1.42, Total Counted Not Reportable 03/11/18 06:00: Sodium 138, Potassium 3.5, Chloride 103, Carbon Dioxide 26.0, Anion Gap 9, BUN 3 L, Creatinine 0.51 L, Estim Creat Clear Calc 125.03, Est GFR (MDRD) Af Amer 188, Est GFR (MDRD) Non-Af 155, BUN/Creatinine Ratio 5.9 L, Glucose 91, Calcium 8.2 L Current Medications Acetaminophen (Tylenol Liquid) 650 mg PO Q6H PRN PRN Reason: pain Sodium Chloride () 1,000 mls @ 100 mls/hr IV .Q10H [facility] Last Admin: 03/11/18 07:28 Dose: 100 mls/hr Ampicillin Sodium/Sulbactam (Sodium 3 gm/ Sodium Chloride) 112 mls @ 150 mls/hr IV Q6 [facility] Last Admin: 03/11/18 06:05 Dose: 150 mls/hr Vancomycin IV Pharmacy to Dose (1 ea/ Sodium Chloride) 500 mls @ 250 mls/hr IV PRN PRN; Protocol PRN Reason: Rx to Dose Vancomycin HCl (Vancomycin) 1,000 mg in 200 mls @ 200 mls/hr IV Q8H [facility] Last Admin: 03/11/18 04:12 Dose: 200 mls/hr Ibuprofen (Motrin Liquid) 600 mg PO Q6H PRN PRN PRN Reason: MILD PAIN (1-3/10) Ondansetron HCl (Zofran) 4 mg IV Q8H PRN PRN PRN Reason: Nausea Last Admin: 03/10/18 09:15 Dose: 4 mg Oxycodone HCl (Oxyir) 5 - 10 mg PO Q4H PRN PRN PRN Reason: SEVERE PAIN (6-10/10) Last Admin: 03/11/18 09:48 Dose: 10 mg Multivit/Folic Acid/Iron (Prenatabs Fa) 1 tablet PO DAILY@1200 [facility] Last Admin: 03/10/18 11:08 Dose: Not Given Sodium Chloride () 5 - 30 ml IV UD PRN PRN Reason: SALINE FLUSH Last Admin: 03/10/18 04:56 Dose: 10 ml Medical Necessity - Tobacco Use Smoking Status: Former smoker Tobacco Use: Non-smoker Assessment/Plan All Active Problems Facial cellulitis (Acute) 1. Left facial cellulitis * stable today * unable to visualize post pharynx, but no clinical nolan's angina * DC clindamyin (was on amoxicillin for 3 days prior to admission) * continue Vancomycin and Unasyn * DDS seen and no need for intervention at this time. * No abscess on CT, however, if no improvement, then would repeat CT to see if development of abscess or even parotitis. 2. 1st trimester * approximately 5 weeks. * vitamin * f/u OB as outpt * reviewed risks of abx * minimize narcotics * increase tylenol Code Visit Inpatient E&M: 00627 Subs Hosp L2
[2018-03-11 11:53] LABS: Vancomycin, Trough Level 5.3 ug/mL (5.0-15.0)
[2018-03-11] MEDS: Prenatal Vits Tablet 1 TABLET PO (12:13)
--- NOTE | 2018-03-11 12:39 | NURSING ---
This RN printed off copies of word searches, sudoku puzzles, etc. for pt to work on- states she is restless and going crazy sitting in room. Pt encouraged to get out and walk unit when able. Notified not to leave unit- pt verbalized understanding.
[2018-03-11 13:30] VITALS: BP 122/70; PULSE 84; RESP 16; TEMP 37.2; O2SAT 95
[2018-03-11] MEDS: Ondansetron 4 MG/2 ML Vial IV (14:33)
[2018-03-11] MEDS: 0.9% NaCl Peripheral Flush Adult/Peds IV ×3 (14:33→20:02)
--- NOTE | 2018-03-11 15:26 | PCM.RX.CS ---
Consult Pharmacy has been consulted to manage selected antiobiotic: Vancomycin Type of Consult: Follow-up Suspected Infection: Skin/Soft tissue Prior Doses of Antibiotics Received/Current Regimen: 3 Labs: Sodium 138 mmol/L (136-145) 03/11/18 06:00 Potassium 3.5 mmol/L (3.5-5.1) 03/11/18 06:00 Chloride 103 mmol/L (98-107) 03/11/18 06:00 Carbon Dioxide 26.0 mmol/L (21.0-32.0) 03/11/18 06:00 Anion Gap 9 (5-15) 03/11/18 06:00 BUN 3 mg/dL (7-18) L 03/11/18 06:00 Creatinine 0.51 mg/dL (0.55-1.02) L 03/11/18 06:00 Est GFR (MDRD) Af Amer 188 mL/min (>60) 03/11/18 06:00 Est GFR (MDRD) Non-Af 155 mL/min (>60) 03/11/18 06:00 BUN/Creatinine Ratio 5.9 RATIO (10-20) L 03/11/18 06:00 Glucose 91 mg/dL (74-106) 03/11/18 06:00 Vancomycin Trough 5.3 ug/mL (5.0-15.0) 03/11/18 11:18 Weight used for dosin.6 kg Estimated Creatinine Clearance: 125 Goal Trough: 15-20 mcg/mL - INCREASE VANCOMYCIN DOSE TO 1500MG Q8H AND REDRAW TROUGH PRIOR TO 3RD NEW DOSE Pharmacy Plan for Drug Dosing: Pharmacy Service will continue to monitor and adjust dosing as required.
[2018-03-11 20:00] VITALS: BP 108/65; PULSE 92; RESP 16; TEMP 37.7; O2SAT 98
[2018-03-11 23:53] VITALS: BP 120/73; PULSE 79; RESP 16; TEMP 36.7; O2SAT 96
[2018-03-12] MEDS: oxyCODONE 5 MG Tablet PO ×4 (00:12→19:25)
[2018-03-12] MEDS: Acetaminophen 650 MG/20 ML UDC PO (00:13)
[2018-03-12] MEDS: 0.9% Normal Saline 1,000 ML 100 ML IV (00:54)
[2018-03-12 04:10] VITALS: BP 111/65; PULSE 72; RESP 16; TEMP 37.1; O2SAT 98
[2018-03-12 06:34] LABS: Anion Gap 6 (5-15); BUN 5 mg/dL (7-18); BUN/Creat Ratio 12.9 RATIO (10-20); Calcium,Total 8.1 mg/dL (8.5-10.1); Chloride 105 mmol/L (98-107); Creatinine, Serum 0.39 mg/dL (0.55-1.02); EST Glomerular Filtration Rate 211 mL/min (>60); Est Glom Filt Rate - Afr Amer 256 mL/min (>60); Glucose 81 mg/dL (74-106); Potassium 3.4 mmol/L (3.5-5.1); Sodium Level 138 mmol/L (136-145)
[2018-03-12] MEDS: 0.9% NaCl Peripheral Flush Adult/Peds IV ×2 (09:49→11:39)
[2018-03-12 09:50] VITALS: BP 110/62; PULSE 81; RESP 16; TEMP 36.9; O2SAT 98
--- NOTE | 2018-03-12 10:04 | PCM.PN.HOSP ---
Patient Problems: Active and Suspected Problems Facial cellulitis (Acute) Subjective: still with left facial swelling. still unable to open mouth wide. no trismus. no shortness of breath. Vitals/I&O's: Vital Signs Temp Pulse Resp BP Pulse Ox 36.9 C 81 16 110/62 98 03/12/18 09:50 03/12/18 09:50 03/12/18 09:50 03/12/18 09:50 03/12/18 09:50 Oxygen Delivery Method Room Air Weight: 84.69 kg Body Mass Index (BMI) 35.2 Intake and Output for Last 24 Hours 03/10/18 03/11/18 03/12/18 23:59 23:59 23:59 Intake Total 2276 / 2276 7923 / 7923 1527 / 1527 Output Total 300 / 300 Balance 1975 7923 / 7923 1527 / 1527 General: Alert, No apparent distress, - - no drooling. no respiratory distress. HEENT: Atraumatic, - - still with left facial swelling. increased induration around mandible. Oral: Moist Mucosa, No Gingival or Mucosal Lesions/ Ulcerations Neck: No Nodes, Thyroid Normal Size and Texture Lungs: Clear to auscultation, Normal air movement, No rhonchi, No wheeze Cardiovascular: Regular rate, Regular Rhythm, Normal S1, Normal S2, No murmurs Abdomen: Bowel Sounds Present, Soft, Non Tender, Non-Distended, No Hepato-splenomegaly Extremities: No edema, No Calf Tenderness Skin: No rashes, No breakdown Psych/Mental Status: Normal Affect, Appropriate Laboratory Results 03/11/18 11:18: Vancomycin Trough 5.3 03/12/18 05:35: Sodium 138, Potassium 3.4 L, Chloride 105, Carbon Dioxide 27.0, Anion Gap 6, BUN 5 L, Creatinine 0.39 L, Estim Creat Clear Calc 163.50, Est GFR (MDRD) Af Amer 256, Est GFR (MDRD) Non-Af 211, BUN/Creatinine Ratio 12.9, Glucose 81, Calcium 8.1 L Current Medications Acetaminophen (Tylenol Liquid) 650 mg PO Q6H PRN PRN Reason: pain Last Admin: 03/12/18 00:13 Dose: 650 mg Sodium Chloride () 1,000 mls @ 100 mls/hr IV .Q10H [facility] Last Admin: 03/12/18 00:54 Dose: 100 mls/hr Ampicillin Sodium/Sulbactam (Sodium 3 gm/ Sodium Chloride) 112 mls @ 150 mls/hr IV Q6 [facility] Last Admin: 03/12/18 06:27 Dose: 150 mls/hr Vancomycin IV Pharmacy to Dose (1 ea/ Sodium Chloride) 500 mls @ 250 mls/hr IV PRN PRN; Protocol PRN Reason: Rx to Dose Vancomycin HCl 1,500 mg/ (Sodium Chloride) 530 mls @ 250 mls/hr IV Q8H [facility] Last Admin: 03/12/18 04:03 Dose: 250 mls/hr Sodium Chloride () 250 mls @ 15 mls/hr IV .[id number] PRN PRN Reason: SALINE FLUSH Ibuprofen (Motrin Liquid) 600 mg PO Q6H PRN PRN PRN Reason: MILD PAIN (1-3/10) Ondansetron HCl (Zofran) 4 mg IV Q8H PRN PRN PRN Reason: Nausea Last Admin: 03/11/18 14:33 Dose: 4 mg Oxycodone HCl (Oxyir) 5 - 10 mg PO Q4H PRN PRN PRN Reason: SEVERE PAIN (6-10/10) Last Admin: 03/12/18 09:49 Dose: 10 mg Multivit/Folic Acid/Iron (Prenatabs Fa) 1 tablet PO DAILY@1200 [facility] Last Admin: 03/11/18 12:13 Dose: 1 tablet Sodium Chloride () 5 - 30 ml IV UD PRN PRN Reason: SALINE FLUSH Last Admin: 03/12/18 09:49 Dose: 10 ml Medical Necessity - Tobacco Use Smoking Status: Former smoker Tobacco Use: Non-smoker Assessment/Plan All Active Problems Facial cellulitis (Acute) 1. Left facial cellulitis stable today unable to visualize post pharynx, but no clinical nolan's angina continue Vancomycin and Unasyn DDS seen and no need for intervention at this time. Increased fluctuance and induration along lower jaw. concern for developing abscess--will check another CT. 2. 1st trimester approximately 5 weeks. vitamin f/u OB as outpt reviewed risks of abx minimize narcotics increase tylenol Code Visit Inpatient E&M: 39637 Subs Hosp L2
--- NOTE | 2018-03-12 10:07 | PN_ITS ---
Patient Problems: Active and Suspected Problems Facial cellulitis (Acute) Subjective: still with left facial swelling. still unable to open mouth wide. no trismus. no shortness of breath. Vitals/I&O's: Vital Signs Temp Pulse Resp BP Pulse Ox 36.9 C 81 16 110/62 98 03/12/18 09:50 03/12/18 09:50 03/12/18 09:50 03/12/18 09:50 03/12/18 09:50 Oxygen Delivery Method Room Air Weight: 84.69 kg Body Mass Index (BMI) 35.2 Intake and Output for Last 24 Hours 03/10/18 03/11/18 03/12/18 23:59 23:59 23:59 Intake Total 2276 / 2276 7923 / 7923 1527 / 1527 Output Total 300 / 300 Balance 1975 7923 / 7923 1527 / 1527 General: Alert, No apparent distress, - - no drooling. no respiratory distress. HEENT: Atraumatic, - - still with left facial swelling. increased induration around mandible. Oral: Moist Mucosa, No Gingival or Mucosal Lesions/ Ulcerations Neck: No Nodes, Thyroid Normal Size and Texture Lungs: Clear to auscultation, Normal air movement, No rhonchi, No wheeze Cardiovascular: Regular rate, Regular Rhythm, Normal S1, Normal S2, No murmurs Abdomen: Bowel Sounds Present, Soft, Non Tender, Non-Distended, No Hepato- splenomegaly Extremities: No edema, No Calf Tenderness Skin: No rashes, No breakdown Psych/Mental Status: Normal Affect, Appropriate Laboratory Results 03/11/18 11:18: Vancomycin Trough 5.3 03/12/18 05:35: Sodium 138, Potassium 3.4 L, Chloride 105, Carbon Dioxide 27.0, Anion Gap 6, BUN 5 L, Creatinine 0.39 L, Estim Creat Clear Calc 163.50, Est GFR (MDRD) Af Amer 256, Est GFR (MDRD) Non-Af 211, BUN/Creatinine Ratio 12.9, Glucose 81, Calcium 8.1 L Current Medications Acetaminophen (Tylenol Liquid) 650 mg PO Q6H PRN PRN Reason: pain Last Admin: 03/12/18 00:13 Dose: 650 mg Sodium Chloride () 1,000 mls @ 100 mls/hr IV .Q10H [facility] Last Admin: 03/12/18 00:54 Dose: 100 mls/hr Ampicillin Sodium/Sulbactam (Sodium 3 gm/ Sodium Chloride) 112 mls @ 150 mls/hr IV Q6 [facility] Last Admin: 03/12/18 06:27 Dose: 150 mls/hr Vancomycin IV Pharmacy to Dose (1 ea/ Sodium Chloride) 500 mls @ 250 mls/hr IV PRN PRN; Protocol PRN Reason: Rx to Dose Vancomycin HCl 1,500 mg/ (Sodium Chloride) 530 mls @ 250 mls/hr IV Q8H [facility] Last Admin: 03/12/18 04:03 Dose: 250 mls/hr Sodium Chloride () 250 mls @ 15 mls/hr IV .[id number] PRN PRN Reason: SALINE FLUSH Ibuprofen (Motrin Liquid) 600 mg PO Q6H PRN PRN PRN Reason: MILD PAIN (1-3/10) Ondansetron HCl (Zofran) 4 mg IV Q8H PRN PRN PRN Reason: Nausea Last Admin: 03/11/18 14:33 Dose: 4 mg Oxycodone HCl (Oxyir) 5 - 10 mg PO Q4H PRN PRN PRN Reason: SEVERE PAIN (6-10/10) Last Admin: 03/12/18 09:49 Dose: 10 mg Multivit/Folic Acid/Iron (Prenatabs Fa) 1 tablet PO DAILY@1200 [facility] Last Admin: 03/11/18 12:13 Dose: 1 tablet Sodium Chloride () 5 - 30 ml IV UD PRN PRN Reason: SALINE FLUSH Last Admin: 03/12/18 09:49 Dose: 10 ml Medical Necessity - Tobacco Use Smoking Status: Former smoker Tobacco Use: Non-smoker Assessment/Plan All Active Problems Facial cellulitis (Acute) 1. Left facial cellulitis * stable today * unable to visualize post pharynx, but no clinical nolan's angina * continue Vancomycin and Unasyn * DDS seen and no need for intervention at this time. * Increased fluctuance and induration along lower jaw. concern for developing abscess--will check another CT. 2. 1st trimester * approximately 5 weeks. * vitamin * f/u OB as outpt * reviewed risks of abx * minimize narcotics * increase tylenol Code Visit Inpatient E&M: 33889 Subs Hosp L2
--- NOTE | 2018-03-12 10:13 | CT_ITS ---
STUDY: CT SOFT TISSUE NECK WITH CONTRAST REASON FOR EXAM: Female, 28 years old. Left dental pain and possible infection. RADIATION DOSAGE (If Supplied By Facility): CTDIvol = ( 24.19 ) mGy, DLP = ( 700.78 ) mGycm TECHNIQUE: The patient was scanned in a multi-detector CT scanner. High resolution transaxial imaging was performed following intravenous administration of 100 ml of Isovue 300 contrast material. Sagittal and coronal images were reconstructed. Individualized dose optimization techniques were used for this CT. COMPARISON: Comparison is made with prior examination March 09, 2018. FINDINGS: Residual increased markings in the left perimandibular soft tissues. This extends into the left medial pterygoid muscle and the left masseter muscle. This is suggestive of a cellulitis. There has been mild degree of improvement as compared to prior study. Normal bilateral parotid glands. Normal bilateral diffusion operator spaces. Normal bilateral parapharyngeal spaces. Normal bilateral carotid spaces. Normal bilateral sublingual and submandibular glands and spaces. Normal visualized nasopharynx. Normal retropharyngeal space. Normal perivertebral space. Normal visualized bilateral faucial tonsils. The visualized tongue, tongue base and oropharynx are normal. Stable enlargement of the left suprahyoid lymph nodes. Normal epiglottis, bilateral vallecula and hypopharynx. The pre-epiglottic and paraglottic adipose spaces are normal. Normal visualized bilateral piriform sinuses, aryepiglottic folds, vocal cords, and arytenoid-cricoid articulations. Normal subglottic trachea. Normal bilateral lobes of the thyroid gland. Normal visualized pulmonary apices. Normal visualized paranasal sinuses. Normal visualized cervical spine. CT/Soft Tissue Neck WITH Contrast IMPRESSION: Since prior study, there has been improvement in the left-sided cellulitis. Residual changes persist. Electronically Signed: Bk Rivera MD at 11:18 EDT Tel [phone], Service support ,
[2018-03-12] MEDS: Prenatal Vits Tablet 1 TABLET PO (11:42)
[2018-03-12] MEDS: 0.9% Normal Saline 1,000 ML 150 ML IV (12:41)
[2018-03-12 13:08] LABS: Vancomycin, Trough Level 10.1 ug/mL (5.0-15.0)
[2018-03-12 15:35] VITALS: BP 117/64; PULSE 86; RESP 18; TEMP 37.4; O2SAT 98
--- NOTE | 2018-03-12 15:52 | PCM.RX.CS ---
Consult Pharmacy has been consulted to manage selected antiobiotic: Vancomycin Suspected Infection: Skin/Soft tissue Prior Doses of Antibiotics Received/Current Regimen: 7 Labs: Sodium 138 mmol/L (136-145) 03/12/18 05:35 Potassium 3.4 mmol/L (3.5-5.1) L 03/12/18 05:35 Chloride 105 mmol/L (98-107) 03/12/18 05:35 Carbon Dioxide 27.0 mmol/L (21.0-32.0) 03/12/18 05:35 Anion Gap 6 (5-15) 03/12/18 05:35 BUN 5 mg/dL (7-18) L 03/12/18 05:35 Creatinine 0.39 mg/dL (0.55-1.02) L 03/12/18 05:35 Est GFR (MDRD) Af Amer 256 mL/min (>60) 03/12/18 05:35 Est GFR (MDRD) Non-Af 211 mL/min (>60) 03/12/18 05:35 BUN/Creatinine Ratio 12.9 RATIO (10-20) 03/12/18 05:35 Glucose 81 mg/dL (74-106) 03/12/18 05:35 Vancomycin Trough 10.1 ug/mL (5.0-15.0) 03/12/18 12:05 Weight used for dosin.6 kg Estimated Creatinine Clearance: 125 Goal Trough: 15-20 mcg/mL - INCREASE DOSE TO 1750MG Q8H BASED ON TROUGH LEVEL OF 10.1 & REPEAT TROUGH LEVEL PRIOR TO 4TH NEW DOSE. Pharmacy Plan for Drug Dosing: Pharmacy Service will continue to monitor and adjust dosing as required.
--- NOTE | 2018-03-12 16:10 | PCM.HP.ID ---
Problem List (1) Facial cellulitis Status: Acute (2) Status: Chronic Reason for Consult: cellulitis Consulted by: Dr. Renae History of Present Illness: The patient is a 28 year old F who is 6 weeks , presented with over a week of progressive L face swelling, pain, redness. Broke a back bottom tooth several months ago and did not take care of it. Developed symptoms in the area, saw dentist, given amoxicillin, but no improvement after a few days of abx. Came to ED, given clinda, now on vanc/unasyn without much improvement in swelling and pain. No drainage. No h/o MRSA. Sent by ENT. Full ROS performed and neg except as noted above. - Medical History Past Medical History (Chronic Problems): Chronic Problems (Chronic) Allergies/Adverse Reactions: Allergies No Known Allergies Allergy (Verified 03/09/18 13:22) Home Medications: Ambulatory Orders Medication Instructions Recorded Vits [Prenatabs FA] 1 tablet PO DAILY 04/10/16 Amoxicillin [Amoxil] 500 mg PO TID 03/09/18 - Social History SMOKING STATUS:: Former smoker Vital Signs Temp Pulse Resp BP Pulse Ox 99.4 F H 86 18 117/64 98 03/12/18 15:35 03/12/18 15:35 03/12/18 15:35 03/12/18 15:35 03/12/18 15:35 Oxygen Delivery Method Room Air Weight: 84.69 kg Body Mass Index (BMI) 35.2 Laboratory Tests Past 24 Hrs 03/12/18 03/12/18 05:35 12:05 Sodium 138 Potassium 3.4 L Chloride 105 Carbon Dioxide 27.0 Anion Gap 6 BUN 5 L Creatinine 0.39 L Estim Creat Clear Calc 163.50 Est GFR (MDRD) Af Amer 256 Est GFR (MDRD) Non-Af 211 BUN/Creatinine Ratio 12.9 Glucose 81 Calcium 8.1 L Vancomycin Trough 10.1 - Other Studies Radiology: [] reviewed Other Studies: [] Route of nutrition/ use of supplements: [] Nutritional Intake: [] IV Site: [] Morales Catheter: [] - Physical Exam General: Alert, Oriented x3, Cooperative, No apparent distress HEENT: Atraumatic, PERRLA, EOMI Neck: Supple, No Nodes Lungs: Clear to auscultation, Normal air movement Cardiovascular: Regular rate, Regular Rhythm Abdomen: Soft, Non Tender, Non-Distended Extremities: No edema Skin: - - L face with diffuse induration, warmth, mild redness, tender to touch IV Site: Peripheral, without redness Musculoskeletal: No Tenderness to Palpation of Joints or Extremities Neurological: Cranial nerves II-XII grossly intact - Assessment/Plan Antibiotics: [] Assessment/Plan: [] Active and Suspected Problems Facial cellulitis (Acute) L face cellulitis due to dental infection - minimal improvement on vanc/unasyn. Surgery following. May be hard to get better without addressing the underlying infected tooth. Will follow, thank you.
[2018-03-12 23:30] VITALS: BP 111/67; PULSE 89; RESP 18; TEMP 37.1; O2SAT 98
[2018-03-13] MEDS: oxyCODONE 5 MG Tablet PO (00:06)
[2018-03-13 04:18] VITALS: BP 114/74; PULSE 76; RESP 16; TEMP 37.1; O2SAT 97
[2018-03-13 05:42] LABS: Absolute Lymphocyte Count 1.76 X10^3/ul (0.83-4.51); Absolute Neutrophil Count 3.8 X10^3/uL (2.0-7.7); Basophil# 0.03 X10^3/uL; Basophil% 0.5 % (0-1); Eosinophil# 0.13 X10^3/uL; Eosinophils% 2.1 % (0-5); Hematocrit 32.8 % (37-47); Hemoglobin 10.6 g/dl (12.0-15.0); Lymphocyte # 1.76 X10^3/ul (4.0); Lymphocyte % 28.9 % (19-41); Mean Corp Hgb Conc 32.3 g/gl (32-36); Mean Corpuscular Hgb 29.9 pg (27.0-32.0); Mean Corpuscular Volume 92.7 fL (81-99); Mean Platelet Vol. 8.5 fl (6.2-12.0); Monocyte# 0.37 X10^3/uL; Monocyte% 6.1 % (0-10); Neutrophil % 62.2 % (47-70); Platelet Count 348 K/mm3 (150-450); RBC Distribution Width CV 12.9 % (11.6-14.6); RBC Distribution Width SD 42.3 fl (35.1-43.9); Red Blood Count 3.54 M/mm3 (4.2-5.4); White Blood Count 6.1 K/mm3 (4.4-11.0)
[2018-03-13 06:07] LABS: Anion Gap 10 (5-15); BUN 4 mg/dL (7-18); BUN/Creat Ratio 10.6 RATIO (10-20); Calcium,Total 8.2 mg/dL (8.5-10.1); Chloride 106 mmol/L (98-107); Creatinine, Serum 0.38 mg/dL (0.55-1.02); EST Glomerular Filtration Rate 218 mL/min (>60); Est Glom Filt Rate - Afr Amer 263 mL/min (>60); Estimated Creatinine Clearance 167.81 ml/min; Glucose 82 mg/dL (74-106); Potassium 3.6 mmol/L (3.5-5.1); Sodium Level 137 mmol/L (136-145)
[2018-03-13 06:12] LABS: POSITIVE COUNT NO; POSITIVE DIFFERENTIAL NO; POSITIVE MORPHOLOGY NO
--- NOTE | 2018-03-13 09:08 | DCINST_ITS ---
- Discharge Diagnoses Current Active Problems: Current Active and Chronic Problems Facial cellulitis (Acute) (Chronic) You will use the following diet at home:: No restrictions Your food should be the consistency of: Regular Discharge Activity: Return to Normal Activity Call your doctor if you observe: Fever of 101 or Higher, - - increased facial swelling. inability to swallow. shortness of breath. Allergies/Adverse Reactions: Allergies No Known Allergies Allergy (Verified 03/09/18 13:22) Medications to take at Discharge Vits [Prenatabs FA ] 1 tablet PO DAILY 04/10/16 Acetaminophen 1,000 mg PO TID PRN #1 tablet 03/13/18 Amoxicillin/Potassium Clav [Augmentin 875-125 Tablet] 1 each PO BID #20 tablet 03/13/18 Oxycodone [Oxyir] 5 - 10 mg PO Q4H PRN PRN 3 Days #18 tablet 03/13/18 The following prescriptions were given: Oxycodone [Oxyir] 5 - 10 mg PO Q4H PRN PRN 3 Days #18 tablet PRN Reason: Severe Pain (-02/19) Amoxicillin/Potassium Clav [Augmentin 875-125 Tablet] 1 each PO BID #20 tablet Acetaminophen 1,000 mg PO TID PRN #1 tablet PRN Reason: Pain Primary Care Physician: Bina Mir MD [Primary Care Provider] - Within 2 Weeks Test Results: Test results from this visit will be discussed in further detail at your follow- up appointment, if applicable. Please Follow Up With: Dentist,Alireza When: March 24 Please Follow Up With: Radhika Couch MD - follow up. When: 2-3 weeks Proposed Discharge Date: 03/13/18
--- NOTE | 2018-03-13 09:08 | PCM.DC.SUM ---
Discharge Date and Diagnosis - Problem List Patient Problems: Active and Suspected Problems Facial cellulitis (Acute) Date of Admission: 03/09/18 Date of Discharge: 03/13/18 - Primary Discharge Diagnosis Active and Suspected Problems Facial cellulitis (Acute) 1. Left facial cellulitis improved today able to open her mouth wider today repeat CT showed no abscess DW ID, change abx to 10 days of Augmentin follow up with DDS on 03/24 for potential tooth extraction. 2. 1st trimester approximately 5 weeks. vitamin f/u OB as outpt reviewed risks of abx minimize narcotics increase tylenol - Secondary Discharge Diagnosis Chronic Problems (Chronic) Hospital Course and Treatment Imaging Results: Clinical Impression(s) from Imaging Studies Soft Tissue Neck CT 03/09/18 13:37 IMPRESSION: 1. Mild cellulitis of the left perimandibular space with mild enlargement of the left masseter muscle and the left medial pterygoid muscle. No CT evidence of abscess or phlegmon. 2. Enhancing benign reactive lymph nodes in the left suprahyoid neck. Electronically Signed: Baron Metzger MD at 15:28 EDT , Service support , Soft Tissue Neck CT 03/12/18 10:13 IMPRESSION: Since prior study, there has been improvement in the left-sided cellulitis. Residual changes persist. Electronically Signed: Bk Rivera MD at 11:18 EDT Tel [phone], Service support , KAELYN Hassan MD--Infectious disease. Operations: None Procedures: None Summary of Care Provided: The patient is a 28 year old F since with left facial pain and swelling. Patient was found to have facial cellulitis and started on Unasyn and clindamycin. Patient really failed to progress and that was changed over to vancomycin and I was still slow to progress and patient underwent CAT scans that showed also involvement of the left masseter muscle medial pterygoid muscle. Subsequent CAT scan did show improvement in today patient is able to open up her mouth better than she has been. Overall, the patient is looking better. Patient was seen by dentistry and did not feel that there is any acute surgical intervention at this time. Infectious disease was consulted as well just to facilitate further antibiotics and long-term treatment options. So patient will be going home today to complete 10 days of Augmentin. Patient will need to have tooth extraction as is likely etiology of her cellulitis. . Additionally, patient is 5 weeks . Patient is already on a vitamin. Patient instructed to follow-up with her staging technician in the next coming weeks. Medications have been reviewed and risks been assessed in regards to her as well. [] Patient Problems: Active and Suspected Problems Facial cellulitis (Acute) - Physical Exam General: Alert, No apparent distress HEENT: Atraumatic, - - Decreased swelling over the left face but there is still is the induration on the lower jaw. No fluctuance appreciated. Oral: Moist Mucosa, No Gingival or Mucosal Lesions/ Ulcerations, - - Open up her mouth approximately 2-3 cm now. Posterior pharynx is clear and intact. Vital Signs Temp Pulse Resp BP Pulse Ox 37.1 C 76 16 114/74 97 03/13/18 04:18 03/13/18 04:18 03/13/18 04:18 03/13/18 04:18 03/13/18 04:18 Oxygen Delivery Method Room Air Weight: 84.69 kg Body Mass Index (BMI) 35.2 Intake and Output for Last 24 Hours 03/11/18 03/12/18 03/13/18 23:59 23:59 23:59 Intake Total 7923 / 7923 5445 / 5445 907 / 907 Balance 7923 / 7923 5445 / 5445 907 / 907 Laboratory Tests Past 24 Hrs 03/12/18 03/13/18 03/13/18 12:05 05:18 05:18 WBC 6.1 RBC 3.54 L Hgb 10.6 L Hct 32.8 L MCV 92.7 MCH 29.9 MCHC 32.3 RDW 12.9 RDW Differential 42.3 Plt Count 348 MPV 8.5 Immature Gran % (Auto) 0.200 Neut % (Auto) 62.2 Lymph % (Auto) 28.9 [place] % (Auto) 6.1 Eos % (Auto) 2.1 Baso % (Auto) 0.5 Absolute Neuts (auto) 3.8 Absolute Lymphs (auto) 1.76 Total Counted Not Reportable Sodium 137 Potassium 3.6 Chloride 106 Carbon Dioxide 21.0 Anion Gap 10 BUN 4 L Creatinine 0.38 L Estim Creat Clear Calc 167.81 Est GFR (MDRD) Af Amer 263 Est GFR (MDRD) Non-Af 218 BUN/Creatinine Ratio 10.6 Glucose 82 Calcium 8.2 L Vancomycin Trough 10.1 Discharge Diet: No Restrictions Discharge Activity: Return to Normal Activity Return to work on:: 03/17/18 Call your doctor if you observe: Fever of 101 or Higher, - - increased facial swelling. inability to swallow. shortness of breath. Home Medications: Medications to take at Discharge Vits [Prenatabs FA ] 1 tablet PO DAILY 04/10/16 Acetaminophen 1,000 mg PO TID PRN #1 tablet 03/13/18 Amoxicillin/Potassium Clav [Augmentin 875-125 Tablet] 1 each PO BID #20 tablet 03/13/18 Oxycodone [Oxyir] 5 - 10 mg PO Q4H PRN PRN 3 Days #18 tablet 03/13/18 Following Prescrptions Were Given to Patient: Oxycodone [Oxyir] 5 - 10 mg PO Q4H PRN PRN 3 Days #18 tablet PRN Reason: Severe Pain (-02/19) Amoxicillin/Potassium Clav [Augmentin 875-125 Tablet] 1 each PO BID #20 tablet Acetaminophen 1,000 mg PO TID PRN #1 tablet PRN Reason: Pain Primary Care Physician: Bina Mir MD [Primary Care Provider] - Within 2 Weeks Please Follow Up With: Dentist,Alireza When: March 24 Please Follow Up With: Radhika Couch MD - follow up. When: 2-3 weeks Disposition: Home Minutes spent on discharge:: 32 Patient Condition:: Good Medical Necessity - Tobacco Use Smoking Status: Former smoker Tobacco Use: Non-smoker Meaningful Use Info Meaningful Use Diagnoses (Choose all that apply): None applicable Code Visit Inpatient E&M: 60735 Disch Hosp
[2018-03-13 09:13] VITALS: BP 118/58; PULSE 79; RESP 16; TEMP 36.9; O2SAT 96
[2018-03-13] MEDS: Ondansetron 4 MG/2 ML Vial IV (09:15)
[2018-03-13] MEDS: Prenatal Vits Tablet 1 TABLET PO (09:18)
--- NOTE | 2018-03-13 09:21 | DS.PCM_ITS ---
Discharge Date and Diagnosis - Problem List Patient Problems: Active and Suspected Problems Facial cellulitis (Acute) Date of Admission: 03/09/18 Date of Discharge: 03/13/18 - Primary Discharge Diagnosis Active and Suspected Problems Facial cellulitis (Acute) 1. Left facial cellulitis * improved today * able to open her mouth wider today * repeat CT showed no abscess * DW ID, change abx to 10 days of Augmentin * follow up with DDS on 03/24 for potential tooth extraction. 2. 1st trimester * approximately 5 weeks. * vitamin * f/u OB as outpt * reviewed risks of abx * minimize narcotics * increase tylenol - Secondary Discharge Diagnosis Chronic Problems (Chronic) Hospital Course and Treatment Imaging Results: Clinical Impression(s) from Imaging Studies Soft Tissue Neck CT 03/09/18 13:37 IMPRESSION: 1. Mild cellulitis of the left perimandibular space with mild enlargement of the left masseter muscle and the left medial pterygoid muscle. No CT evidence of abscess or phlegmon. 2. Enhancing benign reactive lymph nodes in the left suprahyoid neck. Electronically Signed: Baron Metzger MD at 15:28 EDT , Service support , Soft Tissue Neck CT 03/12/18 10:13 IMPRESSION: Since prior study, there has been improvement in the left-sided cellulitis. Residual changes persist. Electronically Signed: Bk Rivera MD at 11:18 EDT Tel [phone], Service support , KAELYN Hassan MD--Infectious disease. Operations: None Procedures: None Summary of Care Provided: The patient is a 28 year old F since with left facial pain and swelling. Patient was found to have facial cellulitis and started on Unasyn and clindamycin. Patient really failed to progress and that was changed over to vancomycin and I was still slow to progress and patient underwent CAT scans that showed also involvement of the left masseter muscle medial pterygoid muscle. Subsequent CAT scan did show improvement in today patient is able to open up her mouth better than she has been. Overall, the patient is looking better. Patient was seen by dentistry and did not feel that there is any acute surgical intervention at this time. Infectious disease was consulted as well just to facilitate further antibiotics and long-term treatment options. So patient will be going home today to complete 10 days of Augmentin. Patient will need to have tooth extraction as is likely etiology of her cellulitis. . Additionally, patient is 5 weeks . Patient is already on a vitamin. Patient instructed to follow-up with her winding inspector and tester in the next coming weeks. Medications have been reviewed and risks been assessed in regards to her as well. [] Patient Problems: Active and Suspected Problems Facial cellulitis (Acute) - Physical Exam General: Alert, No apparent distress HEENT: Atraumatic, - - Decreased swelling over the left face but there is still is the induration on the lower jaw. No fluctuance appreciated. Oral: Moist Mucosa, No Gingival or Mucosal Lesions/ Ulcerations, - - Open up her mouth approximately 2-3 cm now. Posterior pharynx is clear and intact. Vital Signs Temp Pulse Resp BP Pulse Ox 37.1 C 76 16 114/74 97 03/13/18 04:18 03/13/18 04:18 03/13/18 04:18 03/13/18 04:18 03/13/18 04:18 Oxygen Delivery Method Room Air Weight: 84.69 kg Body Mass Index (BMI) 35.2 Intake and Output for Last 24 Hours 03/11/18 03/12/18 03/13/18 23:59 23:59 23:59 Intake Total 7923 / 7923 5445 / 5445 907 / 907 Balance 7923 / 7923 5445 / 5445 907 / 907 Laboratory Tests Past 24 Hrs 03/12/18 03/13/18 03/13/18 12:05 05:18 05:18 WBC 6.1 RBC 3.54 L Hgb 10.6 L Hct 32.8 L MCV 92.7 MCH 29.9 MCHC 32.3 RDW 12.9 RDW Differential 42.3 Plt Count 348 MPV 8.5 Immature Gran % (Auto) 0.200 Neut % (Auto) 62.2 Lymph % (Auto) 28.9 Jerauld % (Auto) 6.1 Eos % (Auto) 2.1 Baso % (Auto) 0.5 Absolute Neuts (auto) 3.8 Absolute Lymphs (auto) 1.76 Total Counted Not Reportable Sodium 137 Potassium 3.6 Chloride 106 Carbon Dioxide 21.0 Anion Gap 10 BUN 4 L Creatinine 0.38 L Estim Creat Clear Calc 167.81 Est GFR (MDRD) Af Amer 263 Est GFR (MDRD) Non-Af 218 BUN/Creatinine Ratio 10.6 Glucose 82 Calcium 8.2 L Vancomycin Trough 10.1 Discharge Diet: No Restrictions Discharge Activity: Return to Normal Activity Return to work on:: 03/17/18 Call your doctor if you observe: Fever of 101 or Higher, - - increased facial swelling. inability to swallow. shortness of breath. Home Medications: Medications to take at Discharge Vits [Prenatabs FA ] 1 tablet PO DAILY 04/10/16 Acetaminophen 1,000 mg PO TID PRN #1 tablet 03/13/18 Amoxicillin/Potassium Clav [Augmentin 875-125 Tablet] 1 each PO BID #20 tablet 03/13/18 Oxycodone [Oxyir] 5 - 10 mg PO Q4H PRN PRN 3 Days #18 tablet 03/13/18 Following Prescrptions Were Given to Patient: Oxycodone [Oxyir] 5 - 10 mg PO Q4H PRN PRN 3 Days #18 tablet PRN Reason: Severe Pain (-02/19) Amoxicillin/Potassium Clav [Augmentin 875-125 Tablet] 1 each PO BID #20 tablet Acetaminophen 1,000 mg PO TID PRN #1 tablet PRN Reason: Pain Primary Care Physician: Bina Mir MD [Primary Care Provider] - Within 2 Weeks Please Follow Up With: Dentist,Your When: March 24 Please Follow Up With: Radhika Couch MD - follow up. When: 2-3 weeks Disposition: Home Minutes spent on discharge:: 32 Patient Condition:: Good Medical Necessity - Tobacco Use Smoking Status: Former smoker Tobacco Use: Non-smoker Meaningful Use Info Meaningful Use Diagnoses (Choose all that apply): None applicable Code Visit Inpatient E&M: 66165 Disch Hosp
--- NOTE | 2018-03-13 10:13 | PCM.PN.ID ---
Patient Problems: Active and Suspected Problems Facial cellulitis (Acute) Subjective: Face still firm, but less sore/red/swollen. No n/v/d, no fever. - Physical Exam General: Alert, Cooperative, No apparent distress Lungs: Clear to auscultation, Normal air movement Cardiovascular: Regular rate, Regular Rhythm Abdomen: Soft, Non Tender, Non-Distended Skin: Rash Present - Face less red/swollen/warm/sore, still some induration Vital Signs Temp Pulse Resp BP Pulse Ox 98.4 F 79 16 118/58 L 96 03/13/18 09:13 03/13/18 09:13 03/13/18 09:13 03/13/18 09:13 03/13/18 09:13 Oxygen Delivery Method Room Air Weight: 84.69 kg Body Mass Index (BMI) 35.2 Intake and Output for Last 24 Hours 03/11/18 03/12/18 03/13/18 23:59 23:59 23:59 Intake Total 7923 / 7923 5445 / 5445 907 / 907 Balance 7923 / 7923 5445 / 5445 907 / 907 Laboratory Tests Past 24 Hrs 03/12/18 03/13/18 03/13/18 12:05 05:18 05:18 WBC 6.1 RBC 3.54 L Hgb 10.6 L Hct 32.8 L MCV 92.7 MCH 29.9 MCHC 32.3 RDW 12.9 RDW Differential 42.3 Plt Count 348 MPV 8.5 Immature Gran % (Auto) 0.200 Neut % (Auto) 62.2 Lymph % (Auto) 28.9 Dawes % (Auto) 6.1 Eos % (Auto) 2.1 Baso % (Auto) 0.5 Absolute Neuts (auto) 3.8 Absolute Lymphs (auto) 1.76 Total Counted Not Reportable Sodium 137 Potassium 3.6 Chloride 106 Carbon Dioxide 21.0 Anion Gap 10 BUN 4 L Creatinine 0.38 L Estim Creat Clear Calc 167.81 Est GFR (MDRD) Af Amer 263 Est GFR (MDRD) Non-Af 218 BUN/Creatinine Ratio 10.6 Glucose 82 Calcium 8.2 L Vancomycin Trough 10.1 Medical Necessity - Tobacco Use Smoking Status: Former smoker Tobacco Use: Non-smoker Route of nutrition/ use of supplements: [] Nutritional Intake: [] IV Site: [] Morales Catheter: [] - Assessment/Plan Antibiotics: [] Assessment/Plan: [] Active and Suspected Problems Facial cellulitis (Acute) L face cellulitis due to dental infection - Much better today, ok for d/c home on augmentin for 10 days to get her to dental appt. Will follow
== END 2018-03-13 11:45 | disposition home or self-care (01) | DRG 832 ==
LOC: ED 13:38 → MS3 16:39
PROVIDERS: Family Medicine; Admitting Provider Student in an Organized Health Care Education/Training Program; Emergency Provider Emergency Medicine; Family Provider Family Medicine; PCP Family Medicine
DX: O99.711 Diseases of the skin and subcutaneous tissue complicating pregnancy, first trimester (principal); L03.211 Cellulitis of face; Z87.891 Personal history of nicotine dependence; Z3A.01 Less than 8 weeks gestation of pregnancy
CPT/HCPCS: 36415; 70491; 80048; 80202; 85025; 99284; J7030; J7040; J7050; Q9967; A4216; J0295; J2405

== ENCOUNTER 2018-10-27 04:50 | Inpatient (IN) | payer BC, SELFPAY ==
--- NOTE | 2018-10-15 17:07 | PCM.HP.BLA ---
History and Physical Date of Admission: 10/27/18 Pre-Op History and Physical ? HPI: The patient is a 28 year old female presenting for pre-operative visit. She is scheduled for repeat c/s and tubal ligation- partial salpingectomy, for repeat c/s and sterilization on 10/27/18. Procedure discussed along with risks, benefits and complications. Other alternatives discussed for management. Consent form signed? Yes. ? ? PAST?MEDICAL?HISTORY PAST MEDICAL HISTORY Diagnosis Date ? Depression ? ? fracture 2006 ? foot and ankle ? depression ? ? PTSD (post-traumatic stress disorder) ? ? diagnosed at 16 ? ? PAST?SURGICAL?HISTORY PAST SURGICAL HISTORY Procedure Laterality Date ? DELIVERY ONLY N/A 05/02/2016 ? EGD W/O OR W/BRUSH/WASH ? 01/09/2013 ? EGD ? ? ? CURRENT?MEDICATIONS Current Outpatient Medications Medication Sig Dispense Refill ? Xwmkythf-Dc-Dsq-Fe-FA ( VITAMIN) tab Take 1 tablet by mouth. ? ? ? No current facility-administered medications for this visit. ? ? ALLERGIES: Patient has no known allergies. ? 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 FAMILY HISTORY: FAMILY?HISTORY FAMILY HISTORY Problem Relation Age of Onset ? Hypertension Mother ? ? Thyroid Mother ? ? Hypertension Father ? ? Lipids Father ? ? No Known Problems Brother ? ? No Known Problems Brother ? ? Asthma Maternal Grandmother ? ? Hypertension Maternal Grandmother ? ? Alzheimer's Disease Maternal Grandfather ? ? Asthma Maternal Grandfather ? ? Hypertension Maternal Grandfather ? ? No Known Problems Paternal Grandfather ? ? Cancer Paternal Grandmother ? ? ovarian ? Cancer Paternal Aunt ? ? ovarian ? No Known Problems Daughter ? ? ? REVIEW OF SYMPTOMS: GENERAL: denies fevers or chills ENDOCRINOLOGY: has not been on steroids Cardiology : denies palpitations or chest pain Respiratory: denies SOB or cough Hematology: denies history of prolonged bleeding or easy bruising or VTE Allergy: Denies history of personal or family history of allergy to anesthesia ? PHYSICAL EXAMINATION: ? VITALS: Blood pressure 118/72, pulse 80, resp. rate 16, weight 216 lb (98 kg), last menstrual period 01/27/2018. ? GENERAL: The patient is well nourished, well hydrated in no acute distress. , The patient is oriented to time, place, and person. NECK: Supple. No lynphadenopathy, normal thyroid, no thyromegaly. LUNGS: Clear to auscultation bilaterally. no wheezes, rhonchi or rales HEART: Regular rate and rhythm, Normal heart sounds and No murmurs or gallops GENITALIA: Normal external genitalia, Urethral meatus normal, Bladder nontender, normal vagina and normal vaginal tone, normal cervix, normal uterus, size and consistency, normal adnexa without masses or tenderness and perineum WNL ? ? IMPRESSION: 39 weeks, desires repeat c/s and tubal ? PLAN: The risks/benefits/alternatives and personal involved for the planned repeat c/s and bilateral partial salpingectomy were reviewed with the patient. Her questions were answered to her satisfaction and she desires to proceed. Consent was signed. I reviewed with her postop instructions and expectations. ? ? I have reviewed and updated past medical and surgical history, medications and allergies Radhika Couch M.D. A
[2018-10-27] VITALS (21 sets, daily range): BP systolic 111–140; BP diastolic 59–87; PULSE 70–89; RESP 16–18; TEMP 35.8–36.4; O2SAT 95–99; BMI 41.3
[2018-10-27] MEDS: Lactated Ringers 1,000 ML 999 ML IV (05:15)
[2018-10-27 05:35] LABS: Absolute Lymphocyte Count 1.97 X10^3/ul (0.83-4.51); Absolute Neutrophil Count 5.4 X10^3/uL (2.0-7.7); Basophil# 0.01 X10^3/uL; Basophil% 0.1 % (0-1); Eosinophil# 0.12 X10^3/uL; Eosinophils% 1.4 % (0-5); Hematocrit 35.9 % (37-47); Hemoglobin 11.8 g/dl (12.0-15.0); Lymphocyte # 1.97 X10^3/ul (4.0); Lymphocyte % 23.7 % (19-41); Mean Corp Hgb Conc 32.9 g/gl (32-36); Mean Corpuscular Hgb 28.1 pg (27.0-32.0); Mean Corpuscular Volume 85.5 fL (81-99); Mean Platelet Vol. 9.4 fl (6.2-12.0); Monocyte# 0.76 X10^3/uL; Monocyte% 9.1 % (0-10); Neutrophil # 5.42 X10^3/uL (2.7-7.7); Neutrophil % 65.3 % (47-70); Platelet Count 274 K/mm3 (150-450); RBC Distribution Width CV 13.6 % (11.6-14.6); RBC Distribution Width SD 41.4 fl (35.1-43.9); White Blood Count 8.3 K/mm3 (4.4-11.0)
[2018-10-27 05:37] LABS: POSITIVE COUNT NO; POSITIVE DIFFERENTIAL NO; POSITIVE MORPHOLOGY NO
[2018-10-27] MEDS: Lactated Ringers 1,000 ML 150 ML IV (07:14)
[2018-10-27] MEDS: Sodium Citrate/Citric Acid 30 ML UDC PO (07:14)
[2018-10-27] MEDS: Cefazolin 2 GM in 0.9% Normal Saline 100 ML IV (07:24)
[2018-10-27] MEDS: Oxytocin 30 units/NS 500 ml 30 UNITS/500 ML IV.SOLN 167 UNITS IV (07:50)
--- NOTE | 2018-10-27 08:24 | PCM.OPRPT ---
Delivery Classification: Scheduled Final LAURA: 11/03/18 Final LAURA Source: US <20 weeks Gestational age: 39 Weeks and 0 Days Indications for : Repeat Elective , Desires elective sterilization Description of Procedure: After informed consent was obtained the patient was taken the operating room. Spinal anesthesia was placed. She was then placed in the supine position. She was prepped and draped in the normal sterile fashion. Anesthesia was found to be adequate- At this time a Pfannenstiel skin incision was made with a knife was carried down to the underlying layer of the fascia. The fascial incision was then extended laterally using curved Salmeron scissor. Attention was then turned to the superior aspect of the fascial edge was grasped with 2 straight Gilford clamps tented up and the rectus muscle dissected off sharply using curved Salmeron scissor. Attention was then turned to the inferior aspect where again Ko clamps were placed in the rectus muscles were tented up and the fascia was dissected off sharply using the curved Salmeron scissor. Rectus muscles were then in the midline bluntly and peritoneum was entered bluntly. Gentle opposing traction was placed. At this time the vesicouterine peritoneum was identified taken down with metzenbaum scissor. Scalpel was used to make a uterine incision in a low transverse fashion. The uterus was then entered bluntly gentle opposing traction was placed to extend this incision. amniotic fluid - clear. infant head delivered atraumatically followed by rest of body. delayed cord clamping performed. Cord was clamped and cut infant was handed to the waiting nursery team. The Placenta was removed from the uterus. The uterus was then removed from the abdominal cavity. The uterus was cleared of all clots and debris using a lap. At this time the uterine incision was reapproximated using #1 Vicryl in a running locked fashion. followed by a second imbricating layer- Hemostasis was appreciated. Posterior cul-de-sac was then cleared of all clots and debris. bilateral partial salpingectomy performed- first avascular area of tube grasped with love and a knuckle was created and double tied with 0-plain gut suture. metzenbaum used to cut portion of tube and bovie used to coagulate tubal lumen. Uterus was placed back in the abdominal cavity. Gutters were cleared of all clots and debris. sites of partial salpingectomy were noted to be hemostatic. Uterine incision was reevaluated and noted to be of excellent hemostasis. At this time the peritoneum was grasped with Kellys reapproximated using #2 Vicryl suture in a running fashion. Fascia was then reapproximated using #1 PDS in a running fashion. Subcu layer was reapproximated with #2 0 plain gut suture in an interrupted fashion. Betty placed. Subcu layer was closed using 4-0 vicryl in a Jeferson needle in a subcu fashion. Dry sterile dressing was applied. Instrument lap needle count correct ?2. Anticipated normal postoperative course. Amniotic Membrane Rupture Type: Artificial Amniotic Fluid Description: Clear Placenta Disposition: [facility] Specimen(s) sent to pathology: biltaeral partial fallopian tubes Drain: Morales to straight drain Cord Entanglement: None Cord Vessel Description: 3 Vessels Esitmated Blood Loss (ml): 800 Gender: Female (1 minute): 9 (5 minute): 9 Delayed cord clamping: Yes Pre-op Antibiotic Given: Ancef 2 grams IV x1 Pt instructed on risks of surgery: Bleeding, Anesthesia Risks, Infection, Need for Future C-Sections, Permanency, Failure Rate of 1 to 2%, Injury to surrounding structure(s) including bowel and bladder, Availability of other non-permanent control options Complications: None - Admit VTE Documentation VTE Present on Admission: Yes VTE Mechan Device Prophylaxis: SCD's VTE Pharm Prophylaxis ordered?: Yes
--- NOTE | 2018-10-27 08:27 | OP.PCM_ITS ---
Delivery Classification: Scheduled Final LAURA: 11/03/18 Final LAURA Source: US <20 weeks Gestational age: 39 Weeks and 0 Days Indications for : Repeat Elective , Desires elective sterilization Description of Procedure: After informed consent was obtained the patient was taken the operating room. Spinal anesthesia was placed. She was then placed in the supine position. She was prepped and draped in the normal sterile fashion. Anesthesia was found to be adequate- At this time a Pfannenstiel skin incision was made with a knife was carried down to the underlying layer of the fascia. The fascial incision was then extended laterally using curved Salmeron scissor. Attention was then turned to the superior aspect of the fascial edge was grasped with 2 straight Lafayette clamps tented up and the rectus muscle dissected off sharply using curved Salmeron scissor. Attention was then turned to the inferior aspect where again Ko clamps were placed in the rectus muscles were tented up and the fascia was dissected off sharply using the curved Salmeron scissor. Rectus muscles were then in the midline bluntly and peritoneum was entered bluntly. Gentle opposing traction was placed. At this time the vesicouterine peritoneum was identified taken down with metzenbaum scissor. Scalpel was used to make a uterine incision in a low transverse fashion. The uterus was then entered bl untly gentle opposing traction was placed to extend this incision. amniotic fluid - clear. head delivered atraumatically followed by rest of infant body. delayed cord clamping performed. Cord was clamped and cut infant was handed to the waiting nursery team. The Placenta was removed from the uterus. The uterus was then removed from the abdominal cavity. The uterus was cleared of all clots and debris using a lap. At this time the uterine incision was reapproximated using #1 Vicryl in a running locked fashion. followed by a second imbricating layer- Hemostasis was appreciated. Posterior cul-de-sac was then cleared of all clots and debris. bilateral partial salpingectomy performed- first avascular area of tube grasped with love and a knuckle was created and double tied with 0-plain gut suture. metzenbaum used to cut portion of tube and bovie used to coagulate tubal lumen. Uterus was placed back in the abdominal cavity. Gutters were cleared of all clots and debris. sites of partial salpingectomy were noted to be hemostatic. Uterine incision was reevaluated and noted to be of excellent hemostasis. At this time the peritoneum was grasped with Kellys reapproximated using #2 Vicryl suture in a running fashion. Fascia was then reapproximated using #1 PDS in a running fashion. Subcu layer was reapproximated with #2 0 plain gut suture in an interrupted fashion. Betty placed. Subcu layer was closed using 4-0 vicryl in a Jeferson needle in a subcu fashion. Dry sterile dressing was applied. Instrument lap needle count correct ?2. Anticipated normal postoperative course. Amniotic Membrane Rupture Type: Artificial Amniotic Fluid Description: Clear Placenta Disposition: [facility] Specimen(s) sent to pathology: biltaeral partial fallopian tubes Drain: Morales to straight drain Cord Entanglement: None Cord Vessel Description: 3 Vessels Esitmated Blood Loss (ml): 800 Gender: Female (1 minute): 9 (5 minute): 9 Delayed cord clamping: Yes Pre-op Antibiotic Given: Ancef 2 grams IV x1 Pt instructed on risks of surgery: Bleeding, Anesthesia Risks, Infection, Need for Future C-Sections, Permanency, Failure Rate of 1 to 2%, Injury to surrounding structure(s) including bowel and bladder, Availability of other non- permanent control options Complications: None - Admit VTE Documentation VTE Present on Admission: Yes VTE Mechan Device Prophylaxis: SCD's VTE Pharm Prophylaxis ordered?: Yes
[2018-10-27] MEDS: Lactated Ringers 1,000 ML 100 ML IV ×2 (09:15→21:44)
--- NOTE | 2018-10-27 09:33 | FALS_PTH ---
PATIENT: PATTI FISHMAN LOC: [facility] U#:[id number] AGE/SX: 28/F ROOM: WP004 RE10/27/[address]: Dr. Talia Godoy, MDDOB: 1990 BED: 1 DIS: 10/30/2018 SPEC #: [id number] RECD: 10/27/18 11:17 STATUS: OBI WANDY #: [id number] MITA: 10/27/18 09:[address]: Talia Godoy DEPT: SURGICAL PATHOLOGY RECD BY: Daren Ordonez ENTERED: 10/27/18 11:17 SP TYPE: FALL TUBES OTHR DR: Dr. Bina Mir MD Tissues: Fallopian tube Procedures: Surgery Specimen Level II HEADER OPERATION: Bilateral partial salpingectomy PRE-OP DIAGNOSIS: Desires elective sterilization TISSUE SUBMITTED: Fallopian tubes MICROSCOPIC DIAGNOSIS Right and left fallopian tubes, bilateral partial salpingectomies: Two complete segments of fallopian tubes with no pathologic change. AM:jonathan 10/28/18 MICROSCOPIC DESCRIPTION Slides are reviewed. GROSS DESCRIPTION Received is one container labeled with the patient's name and designated bilateral fallopian tubes. The specimen consists of two fallopian tubes, right with suture. The right fallopian tube with suture measures 1.2 cm in length and has an average diameter of 0.7 cm. The left fallopian tube measures 0.6 cm in length and 0.6 cm in diameter. Automatic Serging Machine Operator sections are submitted in two cassettes as follows: 1 - right fallopian tube, 2 - left fallopian tube. / AM:jonathan 10/27/18 TC:4 CPT: 39621 x2
[2018-10-27 09:58] LABS: Pathology Specimen OB SEE PATHOLOGY REPORT
[2018-10-27] MEDS: Nalbuphine 10 MG/ML Ampul 5 MG IV ×2 (10:47→15:30)
[2018-10-27] MEDS: Ketorolac 30 MG/ML Syringe IV ×2 (15:31→23:32)
[2018-10-28] VITALS (8 sets, daily range): BP systolic 119–135; BP diastolic 75–77; PULSE 79–88; RESP 18; TEMP 35.9–36.8; O2SAT 97–98
[2018-10-28] MEDS: Ketorolac 30 MG/ML Syringe IV ×4 (06:05→23:51)
[2018-10-28 06:27] LABS: Hematocrit 30.7 % (37-47); Hemoglobin 10.2 g/dl (12.0-15.0); Mean Corp Hgb Conc 33.2 g/gl (32-36); Mean Corpuscular Hgb 28.7 pg (27.0-32.0); Mean Corpuscular Volume 86.2 fL (81-99); Mean Platelet Vol. 9.3 fl (6.2-12.0); Platelet Count 224 K/mm3 (150-450); RBC Distribution Width CV 13.8 % (11.6-14.6); RBC Distribution Width SD 42.4 fl (35.1-43.9); Red Blood Count 3.56 M/mm3 (4.2-5.4); White Blood Count 7.7 K/mm3 (4.4-11.0)
[2018-10-28 06:29] LABS: Scan Indicated on CBC? Y/N NO
--- NOTE | 2018-10-28 07:46 | PCM.PN.OB ---
Subjective: pt seen at bedside, doing well.pt reports good pain control. lochia mild. passing flatus. Denies CP, SOB, Dizzines. pt breast feeding w/o difficulty - Physical Exam General: Alert, Oriented x3 Abdomen: Soft, Non Tender, Non-Distended, Passing Flatus, - - fundus firm. dressing dry and intact Extremities: No Calf Tenderness Neurological: Cranial nerves II-XII grossly intact Vital Signs Temp Pulse Resp BP Pulse Ox 96.6 F L 82 18 133/76 H 97 10/28/18 05:05 10/28/18 05:05 10/28/18 05:05 10/28/18 05:05 10/28/18 05:05 Oxygen Delivery Method Room Air Weight: 99.155 kg Body Mass Index (BMI) 41.3 Intake and Output for Last 24 Hours 10/26/18 10/27/18 10/28/18 23:59 23:59 23:59 Intake Total 5600 / 5600 1500 / 1500 Output Total 2000 / 2000 1800 / 1800 Balance 3600 / 3600 -300 / -300 Laboratory Tests Past 24 Hrs 10/28/18 06:15 WBC 7.7 RBC 3.56 L Hgb 10.2 L Hct 30.7 L MCV 86.2 MCH 28.7 MCHC 33.2 RDW 13.8 RDW Differential 42.4 Plt Count 224 MPV 9.3 Medical Necessity - Tobacco Use Smoking Status: Former smoker Assessment/Plan All Active Problems Facial cellulitis (Acute) POD#1, doing well routine care pain mgmt dc dave abdominal binder ambulation
[2018-10-28] MEDS: 0.9% Saline Lock 10 ML Syringe IV ×3 (09:16→17:38)
[2018-10-28] MEDS: oxyCODONE 5 MG Tablet PO ×2 (14:36→21:52)
[2018-10-29 02:34] VITALS: BP 119/71; PULSE 84; RESP 16; TEMP 36.3
[2018-10-29] MEDS: 0.9% Saline Lock 10 ML Syringe IV (06:08)
[2018-10-29] MEDS: Ketorolac 30 MG/ML Syringe IV (06:08)
--- NOTE | 2018-10-29 08:38 | PCM.PN.OB ---
Subjective: Ambulating and taking PO without difficulty. Voiding and passing flatus. Denies headache, vision change's, SOB, CP, increased vaginal bleeding or clots, no leg pain. Increased pain, no oxycodone since last night. going well. - Physical Exam General: Alert, Oriented x3, Cooperative HEENT: Atraumatic, Normocephalic Neck: Trachea Midline Lungs: Clear to auscultation, Normal air movement, No rhonchi, No wheeze Cardiovascular: Regular rate, Regular Rhythm, No murmurs Abdomen: Bowel Sounds Present, Soft, - - Dressing dry and intact. Fundus firm 3 below U. erythemic area about 3 inches above dressing on abdomen RLQ, does not appear to be related to incision, more due to pannus with dependent edema, non pitting. Extremities: No edema, - - Chris's negative Psych/Mental Status: Normal Affect, Appropriate Vital Signs Temp Pulse Resp BP Pulse Ox 97.3 F L 84 16 119/71 97 10/29/18 02:34 10/29/18 02:34 10/29/18 02:34 10/29/18 02:34 10/28/18 05:05 Oxygen Delivery Method Room Air Weight: 218 lb 9.6 oz Body Mass Index (BMI) 41.3 Intake and Output for Last 24 Hours 10/27/18 10/28/18 10/29/18 23:59 23:59 23:59 Intake Total 5600 / 5600 2271 / 2271 Output Total 1999 / 1999 2900 / 2900 Balance 3600 / 3600 -629 / -629 Medical Necessity - Tobacco Use Smoking Status: Former smoker Assessment/Plan All Active Problems Facial cellulitis (Acute) A:POD #2 Repeat Section Blood loss anemia P: 1) Reviewed discharge today, patient declines and would like to stay additional day due to pain control. Oxycodone this am, instructed patient to take pain medication for relief. Spoke with nursing and to call if uncontrolled this morning. 2) Discussed walking, up out of bed, and abdominal binder. 3) Reviewed with nursing erythemic area on abdomen and to call if worsening today. Does not appear to be infection at this time. 4) notified of patient status. 5) Hgb 10.2, Ferrous Sulfate 325mg PO BID
[2018-10-29] MEDS: oxyCODONE 5 MG Tablet PO ×4 (08:49→23:45)
[2018-10-29 08:52] VITALS: BP 138/85; PULSE 80; RESP 18; TEMP 36; O2SAT 96
--- NOTE | 2018-10-29 08:55 | NURSING ---
Reddened area approx. 3 inches above incision noted. Elyssa SUEM in room and observing. Will cont. to monitor.
[2018-10-29] MEDS: Ibuprofen 600 MG Tablet PO (12:01)
[2018-10-29] MEDS: Ferrous Sulfate 325 MG Tablet PO ×2 (12:01→17:11)
[2018-10-29 14:00] VITALS: BP 123/71; PULSE 73; RESP 16; TEMP 36.3; O2SAT 97
--- NOTE | 2018-10-29 14:07 | NURSING ---
Area of pink skin irritation remains to abdomen approx. 3 inches above incision. Area without warmth and pt denies itching. Pt. states she feels like it is from rubbing while (she's) up. Will cont. to monitor.
--- NOTE | 2018-10-29 16:24 | CASEMGMT ---
Social Work Labor and Delivery Consult noted and chart reviewed. This instructional writer familiar with mother of baby (MOB) from previous delivery at [facility]. Presented to MOB's room but MOB in restroom. Introduced self to father of baby and explained that would be back later today or tomorrow morning. FOB confirms plan to discharge tomorrow, but not sure on time as MOB has still be recovering from caesarian section delivery. Plan: will follow up with MOB prior to discharge for assessment, support, and provision of resources as indicated. -AGUSTIN Berg, YOUTH PASTOR
[2018-10-29 20:35] VITALS: BP 126/78; PULSE 84; RESP 18; TEMP 36.1
[2018-10-30 02:20] VITALS: BP 100/59; PULSE 62; RESP 16; TEMP 37.1
--- NOTE | 2018-10-30 07:29 | PCM.PN.OB ---
Subjective: pt seen at bedside, doing well. pt reports good pain control. lochia mild. passing flatus. Breast feeding. - Physical Exam General: Alert, Oriented x3 Abdomen: Soft, Non-Distended, Passing Flatus, - - fundus firm. Erythema noted superior to incision on right- no induration- appears as superficial skin reaction. Dressing dry and intact Extremities: No Calf Tenderness Neurological: Cranial nerves II-XII grossly intact Vital Signs Temp Pulse Resp BP Pulse Ox 98.7 F 62 16 100/59 L 97 10/30/18 02:20 10/30/18 02:20 10/30/18 02:20 10/30/18 02:20 10/29/18 14:00 Oxygen Delivery Method Room Air Weight: 99.155 kg Body Mass Index (BMI) 41.3 Intake and Output for Last 24 Hours 10/28/10/29/10/30/18 23:59 23:59 23:59 Intake Total 2271 / 2271 Output Total 2900 / 2900 Balance -629 / -629 Medical Necessity - Tobacco Use Smoking Status: Former smoker Assessment/Plan All Active Problems Facial cellulitis (Acute) POD#3, doing well routine care pain mgmt dc home today
--- NOTE | 2018-10-30 07:34 | DS.PCM_ITS ---
Discharge Summary Date of Admission: 10/27/18 Date of Discharge: 10/30/18 Summary: pt was admitted to [facility] for Scheduled c/s with partial salpingectomy - pt had uncomplicated surgery followed by normal post op course. pt was discharged home on POD#3 in stable condition. - Physical Exam Vital Signs Temp Pulse Resp BP Pulse Ox 98.7 F 62 16 100/59 L 97 10/30/18 02:20 10/30/18 02:20 10/30/18 02:20 10/30/18 02:20 10/29/18 14:00 Oxygen Delivery Method Room Air Weight: 99.155 kg Body Mass Index (BMI) 41.3 Intake and Output for Last 24 Hours 10/28/18 10/29/18 10/30/18 23:59 23:59 23:59 Intake Total 2271 / 2271 Output Total 2900 / 2900 Balance -629 / -629
--- NOTE | 2018-10-30 07:34 | DCINST_ITS ---
Discharge Diet: No Restrictions Discharge Activity: Return to Normal Activity, May Not Drive - for 2 weeks, May not drive while taking narcotic pain medications., May Shower, May Take a Tub Bath - in 7 days. May resume sexual activity in: 4-6 weeks Lifting Restrictions: 20 pounds Additional Activity Instructions:: Nothing in the vagina for 4-6 weeks. You may return to work/school in 6 weeks. Call your doctor if your incision/area has: Continuous Slow Oozing, Sudden Increased Bleeding, Increased Pain/ Swelling, Increased Redness, Foul Smelling Discharge Call your doctor if you observe: Fever of 101 or Higher, Using more than one pad per hour - for 2 hours Suture Line Care: Avoid Pulling/Pushing, Avoid Pinching/Bending Cleanse incision/area with: Keep Dressing Clean & Dry Additional Instructions: If you experience any of the following, contact your healthcare provider. * Bleeding that soaks a pad every hour for 2 hours * Fever 100.4 or higher * Unrelieved incision or abdominal pain * Swelling, redness, discharge or bleeding from your incision or episiotomy site * Your incision begins to separate * Problems urinating (including inability to urinate or burning while urinating). * Visual changes * Severe headache * Flu-like symptoms * Pain or redness in one of both of your breasts * Pain, warmth, tenderness or swelling in your legs, especially the calf area * Frequent nausea and vomiting * Symptoms of depression or anxiety If you experience any of the following, call 911 or go to the nearest Emergency Room. * Chest pain * Problems breathing * Seizure activity * Partial or complete paralysis of a body part, slurred speech, weakness or drooping of the face, or a sudden inability to walk or hold your balance Allergies/Adverse Reactions: Allergies No Known Allergies Allergy (Verified 10/27/18 05:11) Medications to take at Discharge Vits [Prenatabs FA ] 1 tablet PO DAILY 04/10/16 Ibuprofen [Motrin] 600 mg PO Q6H PRN PRN #60 tab 10/30/18 Oxycodone HCl/Acetaminophen [Percocet 5/325] 1 tablet PO Q4H PRN PRN 7 Days #20 tablet 10/30/18 SimETHICONE [Mylicon] 80 mg PO PCHS PRN #30 tab 10/30/18 The following prescriptions were given: Ibuprofen [Motrin] 600 mg PO Q6H PRN PRN #60 tab PRN Reason: Mild Pain (-07/20) Transmission Status: Pending to [facility] SimETHICONE [Mylicon] 80 mg PO PCHS PRN #30 tab PRN Reason: Indigestion/stomach pain Transmission Status: Pending to [facility] Oxycodone HCl/Acetaminophen [Percocet 5/325] 1 tablet PO Q4H PRN PRN 7 Days #20 tablet PRN Reason: Pain Transmission Status: Sent to [facility] Follow-Up: Call to make an appointment with your doctor for an incision check in 1-2 weeks. You will also need a 6 week post- follow up appointment. Test results from this visit will be discussed in further detail at your follow- up appointment, if applicable. Please Follow Up With: Talia Godoy MD - Call to make an appointment for an incision check in 1-2 [phone] When: You will need a post- check in 6 weeks. Primary Care Physician: Bina Mir MD [Primary Care Provider] -
[2018-10-30 08:30] VITALS: BP 135/76; PULSE 63; RESP 14; TEMP 36.5; O2SAT 95
--- NOTE | 2018-10-30 08:59 | NURSING ---
[place] area noted approx. 3 inches above right side of dressing. Was assessed per MD this am. Area without warmth and pt denies pain/itching.
[2018-10-30] MEDS: Ibuprofen 600 MG Tablet PO (09:51)
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
--- NOTE | 2018-11-04 17:37 | NURSING ---
1651 Follow up phone call made. Mom going well and no compaints. Bay GARCIA
== END 2018-10-30 12:00 | disposition home or self-care (01) | DRG 785 ==
PROVIDERS: Admitting Provider Obstetrics & Gynecology; Family Provider Family Medicine; PCP Family Medicine; Referring Provider Obstetrics & Gynecology; Visit Provider Obstetrics & Gynecology
PROC: 10D00Z1 Extraction of Products of Conception, Low, Open Approach (ICD-10-PCS; CPT 59514; principal; 2018-10-27 07:15)
DX: O34.219 Maternal care for unspecified type scar from previous cesarean delivery (principal); Z30.2 Encounter for sterilization; Z87.891 Personal history of nicotine dependence; Z3A.39 39 weeks gestation of pregnancy; Z37.0 Single live birth
CPT/HCPCS: 85025; 85027; 86850; 86900; 88302; 99218; J7120; A4216; G0378; J2405

== ENCOUNTER 2021-10-10 10:22 | Emergency (ER) | payer BC, SELFPAY ==
[2021-10-10 10:23] VITALS: BP 125/83; PULSE 113; RESP 16; TEMP 36.7; O2SAT 97; BMI 36.4
[2021-10-10 10:25] VITALS: BP 125/83; PULSE 113; RESP 16; TEMP 36.7; O2SAT 97
--- NOTE | 2021-10-10 10:40 | EDS_ITS ---
HPI HPI - GI History of Present Illness Chief Complaint: Nausea/Vomiting Informant: patient Abdominal Pain/Flank Pain Onset: Yesterday (PM, about an hour after finished eating dinner) Context: Gradual Onset Timing: Continuous and Waxes and wanes Quality: Aching Location: RUQ Current Severity: Severe Maximum Severity: Severe Worsened by: Nothing Relieved by: Nothing Nausea/Vomiting/Emesis GI Symptom: Positive for Nausea and Vomiting Onset: Yesterday Quality: Positive for Nonbilious; Negative for Blood streaks, Coffee ground and Hematemesis Severity: Moderate Diarrhea/Melena/Hematochezia GI Symptom: Positive for Diarrhea; Negative for Melena and Hematochezia Onset: Yesterday Stool Quality: Positive for Loose; Negative for Black, Maroon and BRB per rectum Severity: Mild Associated Symptoms Associated Symptoms: Negative for Dysuria, Frequency, Hematuria and Urgency Narrative Narrative: Colicky right upper quadrant pain without radiation, nausea, vomiting. Had a turkey sandwich with cheese last night in addition to some pineapple pain started about an hour later. Never had this before. No prior abdominal surgeries. Does not think she is . No urinary problems. No fevers, chills, cough, shortness of breath. Healthy otherwise. PFSH PFSH Medical History no medical history no medical history Home Medications hydrocodone-acetaminophen 1 tab PO Q6H PRN PRN 2 Days #8 tablet 10/10/21 [Rx Last Taken Unknown] promethazine 25 mg PO Q6H PRN PRN #10 tablet 10/10/21 [Rx Last Taken Unknown] Allergy/AdvReac Type Severity Reaction Status Date / Time No Known Allergies Allergy Verified 10/10/21 10:25 Surgical History no surgical history no surgical history Social History Smoking Status: Former smoker ROS ROS ED Constitutional Constitutional ED: Denies chills or fever(s) Eyes Eyes: Denies change in vision or diplopia ENT ENT ED: Denies rhinorrhea or sore throat Cardiovascular Cardiovascular: Denies chest pain or palpitations Respiratory/Chest Respiratory/Chest: Denies cough or dyspnea Gastrointestinal Gastrointestinal: Reports as per HPI, abdominal pain, diarrhea, nausea and vomiting Genitourinary Genitourinary ED: Denies dysuria or hematuria Musculoskeletal Musculoskeletal: Denies back pain or neck pain Integumentary Denies abscess or rash Neurologic Neurologic: Denies headache(s), paresthesias or weakness Psychiatric Psychiatric: Denies anxiety or suicidal thoughts EXAM Physical Exam Const Vital Signs: 10/10/21 10:23 10/10/21 10:25 10/10/21 12:23 Temperature 98.1 F 98.1 F Temperature Source Temporal Temporal Pulse Rate 113 H 113 H 85 Respiratory Rate 16 16 16 Blood Pressure 125/83 H 125/83 H 124/74 H Blood Pressure Mean 97 97 90 Pulse Ox 97 97 97 Oxygen Delivery Method Room Air Room Air Room Air Positive well nourished, well developed and obese General Appearance ED: well developed and NAD Nutritional Appearance: obese HEENT Reports moist mucous membranes normocephalic and atraumatic Eyes PERRL and EOMs intact bilaterally Neck full ROM and supple Resp normal respiratory effort and clear to auscultation bilaterally Cardio regular rate, regular rhythm and no murmurs Rate: tachycardic GI non-distended GI Narrative: Very tender right upper quadrant less and epigastrium, otherwise abdomen benign. Positive Araiza. Auscultation: normoactive bowel sounds Palpation: soft Back/Spine no CVA tenderness General Back: other FROM Extremity normal to inspection General Extremety ED: Negative for edema, pulses abnormal or tenderness General Extremity: Negative for edema or pulses abnormal Neuro oriented x3, CN's II-XII intact bilaterally and no sensory deficits noted Sensorium / Orientation: awake and alert Motor Exam: strength 5/5 throughout Skin no rashes or lesions noted and no wounds MDM MDM MDM Narrative Medical decision making narrative: Patient basically with classic biliary colic. Her gallbladder, however, shows no significant gallbladder issues here, no signs of acute inflammation, pericholecystic fluid, acute cholecystitis, or stones. After Toradol morphine Zofran, IV fluids, patient is feeling much better and her pain is gone. Her labs are fine except for a mild nonspecific leukocytosis. I discussed with Dr. John, she is comfortable with her following up as an outpatient, she may need a HIDA scan, staying away from greasy fatty foods, which the patient states which are basically my entire diet, and I will give her prescription for some Vicodin just in case she needs them for recurrent pain, we discussed reasons to return she is comfortable with that plan. Lab Data Attestation: I reviewed the patient's lab results. Labs: Laboratory Results - last 24 hr 10/10/21 10/10/21 10/10/21 10:35 10:35 10:35 WBC 12.2 H RBC 5.15 Hgb 15.4 H Hct 44.9 MCV 87.2 MCH 29.9 MCHC 34.3 RDW Std Deviation 40.5 RDW Coeff of Jameel 12.6 Plt Count 322 MPV 8.7 Immature Gran % (Auto) 0.400 Neut % (Auto) 88.6 H Lymph % (Auto) 5.6 L Irion % (Auto) 5.0 Eos % (Auto) 0.2 Baso % (Auto) 0.2 Absolute Neuts (auto) 10.8 H Absolute Lymphs (auto) 0.68 L Nucleated RBC % 0 Sodium 135 L Potassium 4.0 Chloride 106 Carbon Dioxide 18.0 L Anion Gap 11 BUN 11 Creatinine 0.93 Estim Creat Clear Calc 66.75 Est GFR (MDRD) Af Amer 91 Est GFR (MDRD) Non-Af 75 BUN/Creatinine Ratio 11.9 Glucose 135 H Calcium 8.9 Total Bilirubin 0.60 AST 14 L ALT 37 Alkaline Phosphatase 58 Total Protein 8.4 H Albumin 4.2 Globulin 4.2 Albumin/Globulin Ratio 1.0 Lipase 101 Serum , Qual NEGATIVE Radiography Diagnostic Testing: Clinical Impression(s) from Imaging Studies Gallbladder Ultrasound 10/10/21 10:40 IMPRESSION: Fatty infiltration of the liver with focal fatty sparing in the region of the gallbladder fossa. Electronically Signed: Bk Rivera MD at 11:52 EDT Reading Location ID and State: [facility] / [place] , Service support , Discharge Plan Triage Chief Complaint: Nausea/Vomiting ED Provider: Derrek Tabares Dx/Rx/DC Orders Clinical Impression: Colicky RUQ abdominal pain Instructions: Discharge Instructions Biliary ... Prescriptions: New hydrocodone-acetaminophen [hydrocodone-acetaminophen] 1 TABLET tablet 1 tab PO Q6H PRN PRN (Reason: Pain) 2 Days Qty: 8 RF: 0 promethazine [promethazine] 25 MG tablet 25 mg PO Q6H PRN PRN (Reason: Nausea) Qty: 10 RF: 0 Primary Care Provider: Bina Mir Referrals: Bina Mir MD [Primary Care Provider] - Deena John MD [STAFF PHYSICIAN] - As soon as possible Disposition Disposition: Home, Self Care
--- NOTE | 2021-10-10 10:40 | US_ITS ---
STUDY: ABDOMINAL ULTRASOUND - RIGHT UPPER QUADRANT REASON FOR VISIT: Female, 31 years old right upper quadrant pain. TECHNIQUE: Ultrasound evaluation of the right upper quadrant was performed with real-time and static turcios-scale imaging. TECHNICAL QUALITY: Adequate. COMPARISON: None. FINDINGS: Liver: The liver is enlarged and measures 19.9 cm. There is increased echogenicity consistent with fatty infiltration. Focal fatty sparing is seen adjacent to the gallbladder fossa. The bile ducts are within normal limits. There is hepatic color flow. The direction of portal flow is hepatopetal. There is no demonstrated mass lesion. Gallbladder: Normal distended gallbladder. The gallbladder wall measures 1.3 mm. There is a negative sonographic Araiza''s sign. There is no pericholecystic fluid. There are no gallstones. Common Bile Duct (C.B.D.): The common bile duct measures 3.8 mm. Pancreas: Normal size of the head, body and tail of the pancreas. There is normal echogenicity of the pancreas. There is no demonstrated pancreatic mass or cyst. Right Kidney: Normal size of the right kidney. The right kidney measures 11.8 cm x 5.7 cm x 6.1 cm. Normal renal cortex. The right cortex measures 1 cm. There is no demonstrated renal mass or cyst. There is no right hydronephrosis. US/Gallbladder IMPRESSION: Fatty infiltration of the liver with focal fatty sparing in the region of the gallbladder fossa. Electronically Signed: Bk Rivera MD at 11:52 EDT ,
[2021-10-10 10:53] LABS: Absolute Lymphocyte Count 0.68 X10^3/uL (0.83-4.51); Absolute Neutrophil Count 10.8 X10^3/uL (2.0-7.7); Basophil# 0.03 X10^3/uL; Basophil% 0.2 % (0-1); Eosinophil# 0.02 X10^3/uL; Eosinophils% 0.2 % (0-5); Hematocrit 44.9 % (37-47); Hemoglobin 15.4 g/dL (12.0-15.0); Lymphocyte # 0.68 X10^3/ul (0.83-4.51); Lymphocyte % 5.6 % (19-41); Mean Corp Hgb Conc 34.3 g/dL (32-36); Mean Corpuscular Hgb 29.9 pg (27.0-32.0); Mean Corpuscular Volume 87.2 fL (81-99); Mean Platelet Vol. 8.7 fl (6.2-12.0); Monocyte# 0.61 X10^3/uL; NRBC Flagged by Analyzer 0 % (0-5); Neutrophil # 10.81 X10^3/uL (2.7-7.7); Neutrophil % 88.6 % (47-70); Platelet Count 322 K/mm3 (150-450); RBC Distribution Width CV 12.6 % (11.6-14.6); RBC Distribution Width SD 40.5 fl (35.1-43.9); Red Blood Count 5.15 M/mm3 (4.2-5.4); White Blood Count 12.2 K/mm3 (4.4-11.0)
[2021-10-10] MEDS: Ketorolac 30 MG/ML Syringe IV (10:59)
[2021-10-10] MEDS: 0.9% Normal Saline 1,000 ML 1000 ML IV (10:59)
[2021-10-10] MEDS: Ondansetron 4 MG/2 ML Vial IV (10:59)
[2021-10-10] MEDS: Morphine 4 MG/ML Syringe IV (10:59)
[2021-10-10 11:09] LABS: Internal QC Validated? YES +Cl - CLEAR BKGD; Pregnancy, Serum, hCG Quali. NEGATIVE Negative
[2021-10-10 11:16] LABS: AST(SGOT) 14 U/L (15-37); Alanine Aminotransfer ALT/SGPT 37 U/L (13-56); Albumin, Serum 4.2 g/dL (3.2-5.0); Alkaline Phosphatase 58 U/L (45-117); Anion Gap 11 (5-15); BUN 11 mg/dL (7-18); BUN/Creat Ratio 11.9 RATIO (10-20); Calcium,Total 8.9 mg/dL (8.5-10.1); Chloride 106 mmol/L (98-107); Creatinine, Serum 0.93 mg/dL (0.55-1.02); EST Glomerular Filtration Rate 75 mL/min (>60); Est Glom Filt Rate - Afr Amer 91 mL/min (>60); Estimated Creatinine Clearance 66.75 ml/min; Globulin 4.2 g/dL (2.2-4.2); Glucose 135 mg/dL (74-106); Lipase 101 U/L (73-393); Protein, Total 8.4 g/dL (6.4-8.2); Sodium Level 135 mmol/L (136-145)
[2021-10-10 12:23] VITALS: BP 124/74; PULSE 85; RESP 16; O2SAT 97
== END 2021-10-10 12:51 | disposition home or self-care (01) ==
PROVIDERS: Emergency Provider Emergency Medicine; PCP Family Medicine; Visit Provider Emergency Medicine
DX: R10.11 Right upper quadrant pain (principal); E66.9 Obesity, unspecified; Z87.891 Personal history of nicotine dependence
CPT/HCPCS: 76705; 80053; 83690; 84703; 85025; 96361; 96374; 96375; 99284; J7030; A4216; J2405

== ENCOUNTER 2022-03-18 05:05 | Emergency (ER) | payer BC, SELFPAY ==
[2022-03-18 05:06] VITALS: BP 142/86; PULSE 106; RESP 19; TEMP 36.6; O2SAT 98; BMI 35.2
--- NOTE | 2022-03-18 05:15 | EDS_ITS ---
HPI History of Present Illness Chief Complaint: Nausea/Vomiting/Diarrhea Informant: patient Onset/Context/Timing Onset: Yesterday Narrative Narrative: Patient presents with nausea, vomiting, and diarrhea that been present for the past 24 hours. Patient believes she may have food poisoning after eating out at a restaurant Saturday evening. She has had no fever. PFSH PFSH Medical History no medical history no medical history Home Medications metoclopramide HCl 10 mg tablet (Reglan) 10 mg PO Q6H PRN nausea and vomiting #10 tabs 03/18/22 [Rx Last Taken Unknown] ondansetron 4 mg disintegrating tablet 4 mg PO Q8H PRN nausea and vomiting #10 tabs 03/18/22 [Rx Last Taken Unknown] Allergy/AdvReac Type Severity Reaction Status Date / Time No Known Allergies Allergy Verified 03/18/22 05:09 Social History Smoking Status: Former smoker ROS ROS ED Constitutional Constitutional ED: Denies chills or fever(s) Eyes Eyes: Denies change in vision or discharge from eye(s) ENT ENT ED: Denies discharge from eye(s), rhinorrhea or sore throat Cardiovascular Cardiovascular: Denies chest pain or palpitations Respiratory/Chest Respiratory/Chest: Denies cough or dyspnea Gastrointestinal Gastrointestinal: Reports abdominal pain, diarrhea, nausea and vomiting Genitourinary Genitourinary ED: Denies difficulty urinating or dysuria Musculoskeletal Musculoskeletal: Denies back pain or extremity pain Integumentary Denies Abrasions or rash Neurologic Neurologic: Denies headache(s) or weakness Psychiatric Psychiatric: Denies anxiety or depression Endocrine Endocrinology: Denies polydipsia or polyuria Allergic/Immunologic Allergic/Immunologic ED: Denies lip swelling or urticaria EXAM Physical Exam Const Vital Signs: 03/18/22 05:06 Temperature 97.8 F Temperature Source Temporal Pulse Rate 106 H Respiratory Rate 19 H Blood Pressure 142/86 H Blood Pressure Mean 104 Pulse Ox 98 Oxygen Delivery Method Room Air Positive well nourished and well developed General Appearance ED: well developed HEENT Reports normocephalic and head/scalp atraumatic Eyes PERRL and EOMs intact bilaterally Neck supple Chest Wall inspection of chest normal and palpation of chest normal Resp normal respiratory effort and clear to auscultation bilaterally Cardio regular rate and regular rhythm GI non-tender Auscultation: hypoactive bowel sounds Palpation: soft Extremity normal to inspection Neuro oriented x3 and no sensory deficits noted Sensorium / Orientation: alert Motor Exam: strength 5/5 throughout Psych mental status grossly normal Skin no rashes or lesions noted MDM MDM MDM Narrative Medical decision making narrative: Patient is given Zofran, IV fluids, Bentyl. Lab work obtained. Lab Data Attestation: I reviewed the patient's lab results. Labs: Laboratory Results - last 24 hr 03/18/22 03/18/22 03/18/22 05:28 05:28 05:28 WBC 8.9 RBC 4.40 Hgb 13.2 Hct 41.1 MCV 93.4 MCH 30.0 MCHC 32.1 RDW Std Deviation 44.2 H RDW Coeff of Jameel 12.8 Plt Count 313 MPV 8.7 Immature Gran % (Auto) 0.300 Neut % (Auto) 90.0 H Lymph % (Auto) 5.3 L [place] % (Auto) 3.7 Eos % (Auto) 0.4 Baso % (Auto) 0.3 Absolute Neuts (auto) 8.0 H Absolute Lymphs (auto) 0.47 L Nucleated RBC % 0 Sodium 137 Potassium 4.0 Chloride 108 H Carbon Dioxide 21.0 Anion Gap 8 BUN 18 Creatinine 0.82 Estim Creat Clear Calc 75.01 Est GFR (MDRD) Af Amer 104 Est GFR (MDRD) Non-Af 86 BUN/Creatinine Ratio 21.9 H Glucose 136 H Calcium 9.0 Total Bilirubin 0.50 AST 12 L ALT 28 Alkaline Phosphatase 56 Total Protein 7.9 Albumin 4.0 Globulin 3.9 Albumin/Globulin Ratio 1.0 Serum , Qual NEGATIVE Treatment and Re-Evaluation Narrative: CBC and CMP are unremarkable. test negative. On repeat evaluation patient reports still feeling nauseated. She is given a dose of Reglan and Benadryl. At this time she is able to tolerate p.o. fluids. She will be discharged with prescription for both Zofran and Reglan to use at home as needed for nausea. Supportive care discussed. Discharge Plan Triage Chief Complaint: Nausea/Vomiting/Diarrhea ED Provider: Maria Eugenia Waters Dx/Rx/DC Orders Clinical Impression: Gastroenteritis Instructions: ED FOOD POIS or G-ENTERITIS 6y-earlene Prescriptions: New ondansetron 4 mg tablet,disintegrating 4 mg PO Q8H PRN (Reason: nausea and vomiting) Qty: 10 0RF metoclopramide HCl [Reglan] 10 mg tablet 10 mg PO Q6H PRN (Reason: nausea and vomiting) Qty: 10 0RF Primary Care Provider: Care Physician,No Primary Referrals: Bina Mir MD [Med Staff - Transmission Technician] - 3-5 Days if not improving Disposition Disposition: Home, Self Care
[2022-03-18] MEDS: 0.9% Normal Saline 1,000 ML 1000 ML IV (05:37)
[2022-03-18 05:42] LABS: Absolute Lymphocyte Count 0.47 X10^3/uL (0.83-4.51); Basophil# 0.03 X10^3/uL; Basophil% 0.3 % (0-1); Eosinophil# 0.04 X10^3/uL; Eosinophils% 0.4 % (0-5); Hematocrit 41.1 % (37-47); Hemoglobin 13.2 g/dL (12.0-15.0); Lymphocyte # 0.47 X10^3/ul (0.83-4.51); Lymphocyte % 5.3 % (19-41); Mean Corp Hgb Conc 32.1 g/dL (32-36); Mean Corpuscular Volume 93.4 fL (81-99); Mean Platelet Vol. 8.7 fl (6.2-12.0); Monocyte# 0.33 X10^3/uL; Monocyte% 3.7 % (0-10); NRBC Flagged by Analyzer 0 % (0-5); Neutrophil # 8.03 X10^3/uL (2.7-7.7); POSITIVE DIFFERENTIAL YES; Platelet Count 313 K/mm3 (150-450); RBC Distribution Width CV 12.8 % (11.6-14.6); RBC Distribution Width SD 44.2 fl (35.1-43.9); White Blood Count 8.9 K/mm3 (4.4-11.0)
[2022-03-18] MEDS: Dicyclomine 20 MG/2 ML Vial IM (05:42)
[2022-03-18] MEDS: Ondansetron 4 MG/2 ML Vial IV (05:43)
[2022-03-18 05:56] LABS: Differential Indicated SCAN CRITERIA MET; Internal QC Validated? YES +Cl - CLEAR BKGD; Pregnancy, Serum, hCG Quali. NEGATIVE Negative
[2022-03-18 06:05] LABS: AST(SGOT) 12 U/L (15-37); Alanine Aminotransfer ALT/SGPT 28 U/L (13-56); Alkaline Phosphatase 56 U/L (45-117); Anion Gap 8 (5-15); BUN 18 mg/dL (7-18); BUN/Creat Ratio 21.9 RATIO (10-20); Chloride 108 mmol/L (98-107); Creatinine, Serum 0.82 mg/dL (0.55-1.02); EST Glomerular Filtration Rate 86 mL/min (>60); Est Glom Filt Rate - Afr Amer 104 mL/min (>60); Estimated Creatinine Clearance 75.01 ml/min; Globulin 3.9 g/dL (2.2-4.2); Glucose 136 mg/dL (74-106); Protein, Total 7.9 g/dL (6.4-8.2); Sodium Level 137 mmol/L (136-145)
[2022-03-18] MEDS: Metoclopramide 10 MG/2 ML Vial IV (06:37)
[2022-03-18] MEDS: DiphenhydrAMINE 50 MG/ML Syringe 25 MG IV (06:37)
[2022-03-18] MEDS: 0.9% Normal Saline 1,000 ML 150 ML IV (06:41)
[2022-03-18 07:41] VITALS: PULSE 98; RESP 17; O2SAT 99
== END 2022-03-18 07:49 | disposition home or self-care (01) ==
PROVIDERS: Emergency Provider Emergency Medicine; Visit Provider Emergency Medicine
DX: K52.9 Noninfective gastroenteritis and colitis, unspecified (principal); Z79.899 Other long term (current) drug therapy; Z87.891 Personal history of nicotine dependence
CPT/HCPCS: 80053; 84703; 85025; 96361; 96372; 96374; 96375; 99283; J7030; J2405

== ENCOUNTER 2024-05-08 13:38 | Emergency (ER) | payer BC, SELFPAY ==
[2024-05-08 13:39] VITALS: BP 148/89; PULSE 83; RESP 16; TEMP 36.8; O2SAT 99; BMI 35.5
--- NOTE | 2024-05-08 13:40 | RAD_ITS ---
HISTORY: chest pain. TECHNIQUE: XR Chest 1 View. COMPARISON: 07/02/2012. FINDINGS: CARDIOMEDIASTINAL BORDERS: Cardiac silhouette within normal limits in size. Mediastinal contour unremarkable. LUNGS: Radiographically clear. PLEURA: No pleural effusion or pneumothorax seen. OSSEOUS STRUCTURES: Unremarkable. RAD/Chest 1 View (Portable) IMPRESSION: No acute cardiopulmonary process identified. Electronically Signed: Freda Sanabria MD at 14:50 EST ,
--- NOTE | 2024-05-08 13:40 | EKG12_ITS ---
Test Reason : CHEST PAIN Blood Pressure : */* mmHG Vent. Rate : 85 BPM Atrial Rate : 85 BPM P-R Int : 146 ms QRS Dur : 76 ms QT Int : 346 ms P-R-T Axes : 26 -25 12 degrees QTcB Int : 411 ms Normal sinus rhythm Minimal voltage criteria for LVH, may be normal variant ( R in aVL ) Borderline ECG Confirmed by EDWIN DOWNING, JEREMIE ([id number]), graphic editor LACI ROE ([id number]) on 05/11/2024 6:43:16 AM Referred By: Confirmed By: JEREMIE PINEDA MD
[2024-05-08 14:03] LABS: Absolute Lymphocyte Count 2.51 X10^3/uL (0.83-4.51); Basophil# 0.03 X10^3/uL; Basophil% 0.4 % (0-1); Eosinophil# 0.19 X10^3/uL; Eosinophils% 2.3 % (0-5); Hematocrit 40.3 % (37-47); Hemoglobin 13.5 g/dL (12.0-15.0); Lymphocyte # 2.51 X10^3/ul (0.83-4.51); Lymphocyte % 30.2 % (19-41); Mean Corp Hgb Conc 33.5 g/dL (32-36); Mean Corpuscular Hgb 29.8 pg (27.0-32.0); Mean Platelet Vol. 8.7 fl (6.2-12.0); Monocyte# 0.52 X10^3/uL; Monocyte% 6.3 % (0-10); NRBC Flagged by Analyzer 0 % (0-5); Neutrophil # 5.03 X10^3/uL (2.7-7.7); Neutrophil % 60.6 % (47-70); Platelet Count 375 K/mm3 (150-450); RBC Distribution Width CV 12.5 % (11.6-14.6); RBC Distribution Width SD 40.9 fl (35.1-43.9); Red Blood Count 4.53 M/mm3 (4.2-5.4); White Blood Count 8.3 K/mm3 (4.4-11.0)
[2024-05-08 14:24] LABS: Anion Gap 6 (5-15); BUN 11 mg/dL (7-18); BUN/Creat Ratio 14.7 RATIO (10-20); Calcium,Total 9.2 mg/dL (8.5-10.1); Chloride 106 mmol/L (98-107); Creatinine, Serum 0.75 mg/dL (0.55-1.02); EST Glomerular Filtration Rate 95 mL/min (>60); Est Glom Filt Rate - Afr Amer 115 mL/min (>60); Estimated Creatinine Clearance 105.79 ml/min; Glucose 100 mg/dL (74-106); Potassium 3.6 mmol/L (3.5-5.1); Sodium Level 137 mmol/L (136-145); Troponin-I HS (w/2H Reflex) < 3 pg/mL (3.0-54.0)
[2024-05-08 14:38] VITALS: PULSE 75; RESP 18; O2SAT 98
--- NOTE | 2024-05-08 14:56 | ED.VIS.CHEST ---
HPI History of Present Illness Chief Complaint: Chest Pain Informant: patient Onset/Context/Timing Onset: Weeks (2) Activity at onset: gradual Timing: Intermittent Quality: Positive for Burning and Sharp (With movement) Location: Substernal Worsened By: Movement of Torso Relieved By: Nothing Associated Symptoms: Positive for Nausea, Cough and Palpitations; Negative for Vomiting, Diaphoresis, Dyspnea, Fever, Lightheadedness or Acid Reflux Narrative Narrative: Patient presents with chest pain that began 2 weeks ago. Patient states it has been intermittent. Patient describes it as sharp and burning. Patient states it is over the substernal area. Patient states it is gradually getting worse. Patient states it is worse with certain movements. Patient states nothing seems to be helping it. Patient admits to some nausea but denies any vomiting. Patient admits to a cough. Patient admits to some palpitations where he feels like her heart was skipping abdomen occasionally. Normal CVD Risk Factors: Positive for Smoking (Vape nicotine); Negative for Hypertension, Diabetes, Hypercholesterolemia or Family History 1' </=55 PE Risk Factors: Negative for Recent Travel/Surgery, Recent Immobilization, Prior DVT or PE, Cancer or OCP + Smoking + >/=35 PFSH PFSH Medical History no medical history no medical history Home Medications ?Medication ?Instructions ?Recorded ?Last Taken ?Type NK 05/08/24 Unknown History Allergy/AdvReac Type Severity Reaction Status Date / Time No Known Allergies Allergy Verified 03/18/22 05:09 Surgical History no surgical history no surgical history Social History Smoking Status: Current every day smoker tobacco type: cigarettes and e-cigarettes ROS ROS ED Constitutional Constitutional ED: Denies chills or fever(s) Eyes Eyes: Denies blurry vision or change in vision ENT ENT ED: Denies rhinorrhea or sore throat Cardiovascular Cardiovascular: Reports chest pain and palpitations Respiratory/Chest Respiratory/Chest: Reports cough; Denies dyspnea Gastrointestinal Gastrointestinal: Reports nausea; Denies vomiting Genitourinary Genitourinary ED: Denies dysuria or hematuria Musculoskeletal Musculoskeletal: Denies back pain or neck pain Integumentary Denies abscess or rash Neurologic Neurologic: Denies headache(s) or weakness Allergic/Immunologic Allergic/Immunologic ED: Denies mouth swelling or urticaria EXAM Physical Exam Const Vital Signs: 05/08/24 13:39 05/08/24 13:59 05/08/24 14:38 Temperature 98.2 F Temperature Source Oral Pulse Rate 83 75 Respiratory Rate 16 18 Blood Pressure 148/89 H Blood Pressure Mean 108 Pulse Ox 99 98 Oxygen Delivery Method Room Air Room Air Room Air Positive well nourished and well developed General Appearance ED: well developed and NAD HEENT Reports moist mucous membranes Neck supple and no JVD Chest Wall palpation of chest normal Resp normal respiratory effort and clear to auscultation bilaterally Cardio regular rate and regular rhythm GI soft to palpation, non-tender and non-distended Extremity normal to inspection General Extremety ED: Negative for edema or tenderness General Extremity: Negative for edema Neuro oriented x3, CN's II-XII intact bilaterally and no sensory deficits noted Sensorium / Orientation: awake and alert Motor Exam: strength 5/5 throughout Psych mental status grossly normal Heart Score History: Slightly/Non-Suspicious ECG: Normal Age: </= 45 years Risk Factors: 1 or 2 Risk Factors Troponin: </= Normal Limit Score: 1 MDM MDM MDM Narrative Medical decision making narrative: Differential diagnosis includes cardiac dysrhythmia, cardiac ischemia, pneumonia, pneumothorax, gastroesophageal reflux disease, musculoskeletal pain, and anxiety. EKG will be obtained to assess for cardiac dysrhythmia and cardiac ischemia. Chest x-ray will be obtained to assess for pneumonia and pneumothorax. CBC will be obtained to assess for leukocytosis and anemia. Basic metabolic profile will be obtained to assess for electrolyte abnormality and renal function. High-sensitivity troponin will be obtained to assess for cardiac ischemia. Lab Data Attestation: I reviewed the patient's lab results. Lab results narrative: CBC was reviewed and was within normal limits. Patient was advised profile was reviewed and was within normal. High-sensitivity troponin was less than 3. Labs: Laboratory Results - last 24 hr 05/08/24 13:57 WBC 8.3 RBC 4.53 Hgb 13.5 Hct 40.3 MCV 89.0 MCH 29.8 MCHC 33.5 RDW Std Deviation 40.9 RDW Coeff of Jameel 12.5 Plt Count 375 MPV 8.7 Immature Gran % (Auto) 0.200 Neut % (Auto) 60.6 Lymph % (Auto) 30.2 Bracken % (Auto) 6.3 Eos % (Auto) 2.3 Baso % (Auto) 0.4 Absolute Neuts (auto) 5.0 Absolute Lymphs (auto) 2.51 Nucleated RBC % 0 Sodium 137 Potassium 3.6 Chloride 106 Carbon Dioxide 26.0 Anion Gap 6 BUN 11 Creatinine 0.75 Estim Creat Clear Calc 105.79 Est GFR (MDRD) Af Amer 115 Est GFR (MDRD) Non-Af 95 BUN/Creatinine Ratio 14.7 Glucose 100 Calcium 9.2 Troponin I High Sens < 3 L Radiography Chest X-Ray - ED: 1 View, Read by ED Physician, Read by Radiologist and No Acute Disease Diagnostic Testing: Clinical Impression(s) from Imaging Studies Chest X-Ray 05/08/24 13:40 IMPRESSION: No acute cardiopulmonary process identified. Electronically Signed: Freda Sanabria MD at 14:50 EST , Portable 1 view chest x-ray was obtained. On my independent interpretation, lung cerna are clear. There is normal cardiac silhouette. Bony thorax is normal. There is no acute process noted. Radiologist also interpreted the x-ray and agrees. EKG Initial EKG: Attestation: I personally reviewed and interpreted this EKG as follows: Interpretation: Sinus Rhythm (85) and No Acute Injury Pattern Comments: EKG was obtained. On my independent interpretation, it showed a normal sinus rhythm with a rate of 85. OR interval, QRS interval, and QTc intervals were all normal. There is left axis deviation at -25. There are no acute ST or T wave changes. Prior EKG tracings: not available for review Prior: No Prior Treatment and Re-Evaluation :: Patient was given aspirin. Nicotine cessation was discussed. Patient was advised of her findings. Patient has a HEART score of 1. Patient was advised that this is low risk for acute cardiac event. Patient was instructed to follow-up with her primary care physician in 5 to 7 days. Patient was instructed to return if worse in any way. Patient understood and was agreeable with the plan. All questions were answered. Discharge Plan Triage Chief Complaint: Chest Pain ED Provider: Edenilson Kent Dx/Rx/DC Orders Clinical Impression: Chest pain, Nicotine vapor product user Instructions: ED Chest Pain, Uncertain Cause Prescriptions: No Action NK Primary Care Provider: Care Physician,No Primary Referrals: Cynthia Reyes MD [Med Staff - Recreational Therapy Aide] - 5-7 Days Care Physician,No Primary [Primary Care Provider] - Print Language: Frisian Disposition Disposition: Home, Self Care
[2024-05-08 15:00] VITALS: PULSE 69; RESP 16; O2SAT 98
[2024-05-08] MEDS: Aspirin 81 MG TAB.CHEW 324 MG PO (15:27)
--- NOTE | 2024-05-08 15:30 | ED.RN ---
Dr. Kent bedside
[2024-05-08 15:32] VITALS: BP 148/89; PULSE 69; RESP 16; TEMP 36.8; O2SAT 98
[2024-05-08 16:00] LABS: Reflex Troponin-HS? (from REC) Y
== END 2024-05-08 15:36 | disposition home or self-care (01) ==
PROVIDERS: Emergency Provider Emergency Medicine; Visit Provider Emergency Medicine
DX: R07.9 Chest pain, unspecified (principal); R00.2 Palpitations; R11.0 Nausea; R05.9 Cough, unspecified; F17.210 Nicotine dependence, cigarettes, uncomplicated; F17.290 Nicotine dependence, other tobacco product, uncomplicated
CPT/HCPCS: 71045; 80048; 84484; 85025; 93005; 99284; A4216